=== PATIENT | male | born 1955 | race Caucasian/White ===

== ENCOUNTER 2020-08-22 13:06 | Emergency (ER) | payer BC ==
--- OUTSIDE RECORDS SUMMARY | 2020-08-22 13:10 | XMS REPORT | Continuity of Care Document ---
:1955 Author Organization [facility] t Address [address] [place] [address] Care Team Providers Name Role Phone Asked, Pcp Primary Care Physician Unavailable [facility] Attending Clinician Unavailable [facility] Admitting Clinician Unavailable Problems Condition Condition Condition Status Onset Resolution Last Treating Co mments Source Name Details Category Date Date Treatment Clinician Date Aortic Aortic Disease Active [facility] Acute Acute Disease Active [facility] blood loss blood loss 4-10 Lena kes - as cause as cause 00:00: Medica l of 00 Center postoperat postoperat joann anemia joann anemia Acute Acute Disease Active [facility] pulmonary pulmonary 4-10 [facility] - insufficie insufficie 00:00: Nc dical ncy ncy 00 Center following following thoracic thoracic surgery surgery Allergies, Adverse Reactions, Alerts This patient has no known allergies or adverse reactions. Family History Family Member Diagnosis Comments Start Date Stop Date Source Natural father Heart disease Karthik Norris Natural mother Hypertension Karthik Norris Social History Social Habit Start Date Stop Date Quantity Comments Source Alcohol intake 2016-08-28 2016-08-28 [facility] (finding) Alcohol Comment 2016-08-16 2016-08-[address] [facility] [address] Lena kes - 00:00:00 00:00:00 Medical Hobbs Sex Ass[birth year] [facility] ethodist 00:00:00 00:00:00 Smoking Status Start Date Stop Date Source Never smoker Karthik giraldo Medications Ordered Filled Start Stop Current Ordering Indication Dosage Frequency Signature Comments Components Source Medication Medication Date Date Medication? Clinician (SIG) Name Name nebivolol Yes Take by [place] (BYSTOLIC) 7-24 mouth. Methodi 5 MG tablet 14:11: st 54 aspirin Yes 81mg Take 81 mg [place] (ECOTRIN) 7-24 by mouth. Metho di 81 MG 14:11: st enteric 54 coated tablet finasteride Yes 1mg QD Take [address] (PROPECIA) 4-13 by mouth [facility] - 1 mg tablet 13:28: daily. Medi deisy 59 Center atorvastati Yes 10mg QD Take [address] [facility] n (LIPITOR) 4-13 by mouth Luke s - 10 MG 13:28: daily. Medical tablet 59 Center PNV w/o Yes QD Take by [facility] calcium-iro 4-13 mouth [facility] - n fum-FA 13:28: daily. Medical (M-VIT) 59 Center 27-1 mg Tab acetaminoph Yes 500mg Take [address] en 4-13 mg by [facility] - (TYLENOL) 13:28: mouth Medical 500 MG 59 every 6 Center tablet (six) hours as needed for Pain. aspirin 81 Yes 81mg QD Take [address] MG EC 4-13 by mouth [facility] - tablet 13:28: daily. Medical 59 Center metoprolol Yes TK 1/2 T Sharon ston tartrate 4-13 PO BID Methodi (LOPRESSOR) 00:00: st 25 mg 00 tablet atorvastati Yes TK 1 T PO H [place] n (LIPITOR) 3-20 QHS Methodi 10 MG 00:00: st tablet 00 PROPECIA 1 Yes 1mg QD Take 1 mg [place] mg tablet 3-09 by mouth Method i 00:00: once st 00 daily. Procedures This patient has no known procedures. Plan of Care Planned Activity Planned Date Details Comments Source Future Scheduled 2019-12-20 INFLUENZA VACCINE Lucho dodson [facility] Test 00:00:00 [code = INFLUENZA VACCINE] Future Scheduled 2006-06-01 COLONOSCOPY SCREENING [place] [facility] Test 00:00:00 [code = COLONOSCOPY SCREENING] Future Scheduled 2006-06-01 SHINGLES VACCINES Lucho dodson [facility] Test 00:00:00 (#1) [code = SHINGLES VACCINES (#1)] Future Scheduled 1972-06-01 COVID-19 VACCINE (1) Sharon dang [facility] Test 00:00:00 [code = COVID-19 VACCINE (1)] Results Test Description Test Time Test Comments Results Result [facility] e Comments TISSUE EXAM 2016-08-30 Surgical Pathology 18:53:00 Report Case: [id number] --Authorizing Provider: Jason Stark MD Ordering Provider: Jason Stark MD Ordering Location: [facility] Collected: 08/28/2016 1032 PERIOPERATIVE SERVICES Pathologist: Leslie Rose, Received: 08/28/2016 1150 Specimen: Aortic Valve, aortic valve AORTIC VALVE, REPAIR: - 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 Sectioning reveals focal calcification. [employer] sections are submitted in cassette A1 for entirely submitted. DB/plPERFORMED POCT-GLUCOSE METER 2016-08-30 06:54:00 Test Item Value Reference Range Interpretation Comme [facility] POC-GLUCOSE METER (Connectivity) (test 113 mg/dL 70-110 H TESTED AT [facility] [address] code = 1538) [facility] 7703 0 CBC W/PLT COUNT & AUTO [id number] 06:29:00 Test Item Value Reference Range Interpretation Comments WHITE BLOOD CELL COUNT (BEAKER) 13.4 K/ L 4.0-10.0 H (test code = 775) RED BLOOD CELL COUNT (BEAKER) 2.92 M/ L 4.20-5.80 L (test code = 761) HEMOGLOBIN (BEAKER) (test code = 9.5 GM/DL 13.0-16.8 L 410) HEMATOCRIT (BEAKER) (test code = 26.9 % 40.0-50.0 L 411) MEAN CORPUSCULAR VOLUME (BEAKER) 92.2 fL 82.0-98.0 (test code = 753) MEAN CORPUSCULAR HEMOGLOBIN 32.4 pg 27.0-33.0 (BEAKER) (test code = 751) MEAN CORPUSCULAR HEMOGLOBIN CONC 35.1 GM/DL 32.0-36.0 (BEAKER) (test code = 752) RED CELL DISTRIBUTION WIDTH 13.3 % 10.3-14.2 (BEAKER) (test code = 412) PLATELET COUNT (BEAKER) (test code 97 K/CU MM 150-430 L = 756) MEAN PLATELET VOLUME (BEAKER) 7.2 fL 6.5-10.5 (test code = 754) NUCLEATED RED BLOOD CELLS (BEAKER) 0 /100 WBC 0-0 (test code = 413) NEUTROPHILS RELATIVE PERCENT 83 % (BEAKER) (test code = 429) LYMPHOCYTES RELATIVE PERCENT 10 % (BEAKER) (test code = 430) MONOCYTES RELATIVE PERCENT 6 % (BEAKER) (test code = 431) EOSINOPHILS RELATIVE PERCENT 1 % (BEAKER) (test code = 432) BASOPHILS RELATIVE PERCENT 0 % (BEAKER) (test code = 437) NEUTROPHILS ABSOLUTE COUNT 11.10 K/ L 1.80-8.00 H (BEAKER) (test code = 670) LYMPHOCYTES ABSOLUTE COUNT 1.35 K/ L 1.48-4.50 L (BEAKER) (test code = 414) MONOCYTES ABSOLUTE COUNT (BEAKER) 0.79 K/ L 0.00-1.30 (test code = 415) EOSINOPHILS ABSOLUTE COUNT 0.10 K/ L 0.00-0.50 (BEAKER) (test code = 416) BASOPHILS ABSOLUTE COUNT (BEAKER) 0.03 K/ L 0.00-0.20 (test code = 417) [id number] 05:33:00 Test Item Value Reference Range Interpretation Comments MAGNESIUM (BEAKER) (test code = 2.2 mg/dL 1.6-2.6 627) BASIC METABOLIC [id number] 05:33:00 Test Item Value Reference Range Interpretation Comments SODIUM (BEAKER) 138 meq/L 136-145 (test code = 381) POTASSIUM (BEAKER) 4.1 meq/L 3.5-5.1 (test code = 379) CHLORIDE (BEAKER) 110 meq/L 98-107 H (test code = 382) CO2 (BEAKER) (test 20 meq/L 22-29 L code = 355) BLOOD UREA NITROGEN 12 mg/dL 7-21 (BEAKER) (test code = 354) CREATININE (BEAKER) 0.76 mg/dL 0.57-1.25 (test code = 358) GLUCOSE RANDOM 112 mg/dL 70-105 H (BEAKER) (test code = 652) CALCIUM (BEAKER) 8.0 mg/dL 8.4-10.2 L (test code = 697) EGFR (BEAKER) (test 105 mL/min/1.73 ESTIM ATED GFR IS code = 1092) sq m NOT ACCURATE CREATININE CLEARANCE IN PREDICTING GLOMERULAR FILTRATION RATE . ESTIMATED GFR I S NOT APPLICABLE FOR DIALYSIS PATIEN TS. POCT-GLUCOSE [id number] 05:39:00 Test Item Value Reference Range Interpretation Comments POC-GLUCOSE METER 122 mg/dL 70-110 H TESTED AT [facility] 67[address] (BEAKER) (test code = [place] 1538) [address] OXYGEN SATURATION, [id number] 04:36:00 Test Item Value Reference Range Interpretation Comments O2 SATURATION (MEASURED) (BEAKER) 57.9 % (test code = 1455) CALCIUM, [id number] 04:30:00 Test Item Value Reference Range Interpretation Comments CALCIUM IONIZED (BEAKER) (test 1.06 mmol/L 1.12-1.27 L code = 698) PH, BLOOD (BEAKER) (test code = 7.44 6900) Check serum Ionized Calcium level after 4 hours after IV Calcium replacement. BASIC METABOLIC [id number] 03:53:00 Test Item Value Reference Range Interpretation Comments SODIUM (BEAKER) 139 meq/L 136-145 (test code = 381) POTASSIUM (BEAKER) 4.1 meq/L 3.5-5.1 (test code = 379) CHLORIDE (BEAKER) 113 meq/L 98-107 H (test code = 382) CO2 (BEAKER) (test 21 meq/L 22-29 L code = 355) BLOOD UREA NITROGEN 14 mg/dL 7-21 (BEAKER) (test code = 354) CREATININE (BEAKER) 0.77 mg/dL 0.57-1.25 (test code = 358) GLUCOSE RANDOM 136 mg/dL 70-105 H (BEAKER) (test code = 652) CALCIUM (BEAKER) 7.7 mg/dL 8.4-10.2 L (test code = 697) EGFR (BEAKER) (test 103 mL/min/1.73 ESTIM ATED GFR IS code = 1092) sq m NOT ACCURATE CREATININE CLEARANCE IN PREDICTING GLOMERULAR FILTRATION RATE . ESTIMATED GFR I S NOT APPLICABLE FOR DIALYSIS PATIEN TS. [id number] 03:52:00 Test Item Value Reference Range Interpretation Comments PHOSPHORUS (BEAKER) (test code = 2.7 mg/dL 2.3-4.7 604) [id number] 03:52:00 Test Item Value Reference Range Interpretation Comments MAGNESIUM (BEAKER) (test code = 2.2 mg/dL 1.6-2.6 627) CBC W/PLT COUNT & AUTO [id number] 03:39:00 Test Item Value Reference Range Interpretation Comments WHITE BLOOD CELL COUNT (BEAKER) 13.9 K/ L 4.0-10.0 H (test code = 775) RED BLOOD CELL COUNT (BEAKER) 3.30 M/ L 4.20-5.80 L (test code = 761) HEMOGLOBIN (BEAKER) (test code = 10.7 GM/DL 13.0-16.8 L 410) HEMATOCRIT (BEAKER) (test code = 30.0 % 40.0-50.0 L 411) MEAN CORPUSCULAR VOLUME (BEAKER) 90.8 fL 82.0-98.0 (test code = 753) MEAN CORPUSCULAR HEMOGLOBIN 32.4 pg 27.0-33.0 (BEAKER) (test code = 751) MEAN CORPUSCULAR HEMOGLOBIN CONC 35.7 GM/DL 32.0-36.0 (BEAKER) (test code = 752) RED CELL DISTRIBUTION WIDTH 13.1 % 10.3-14.2 (BEAKER) (test code = 412) PLATELET COUNT (BEAKER) (test 105 K/CU MM 150-430 L code = 756) MEAN PLATELET VOLUME (BEAKER) 6.9 fL 6.5-10.5 (test code = 754) NUCLEATED RED BLOOD CELLS 0 /100 WBC 0-0 (BEAKER) (test code = 413) NEUTROPHILS RELATIVE PERCENT 87 % (BEAKER) (test code = 429) LYMPHOCYTES RELATIVE PERCENT 7 % (BEAKER) (test code = 430) MONOCYTES RELATIVE PERCENT 6 % (BEAKER) (test code = 431) EOSINOPHILS RELATIVE PERCENT 0 % (BEAKER) (test code = 432) BASOPHILS RELATIVE PERCENT 0 % (BEAKER) (test code = 437) NEUTROPHILS ABSOLUTE COUNT 12.00 K/ L 1.80-8.00 H (BEAKER) (test code = 670) LYMPHOCYTES ABSOLUTE COUNT 0.97 K/ L 1.48-4.50 L (BEAKER) (test code = 414) MONOCYTES ABSOLUTE COUNT (BEAKER) 0.84 K/ L 0.00-1.30 (test code = 415) EOSINOPHILS ABSOLUTE COUNT 0.03 K/ L 0.00-0.50 (BEAKER) (test code = 416) BASOPHILS ABSOLUTE COUNT (BEAKER) 0.00 K/ L 0.00-0.20 (test code = 417) 0.00POCT-GLUCOSE [id number] 02:18:00 Test Item Value Reference Range Interpretation Comments POC-GLUCOSE METER 131 mg/dL 70-110 H TESTED AT [facility] 67 (BEAKER) (test code = [place] [facility] 1538) [address] POCT-GLUCOSE [id number] 02:18:00 Test Item Value Reference Range Interpretation Comments POC-GLUCOSE METER 138 mg/dL 70-110 H TESTED AT [facility] 67[address] (BEAKER) (test code = [facility] [place] [facility] 1538) [address] [id number] 18:45:00 Test Item Value Reference Range Interpretation Comments MAGNESIUM (BEAKER) (test code = 2.4 mg/dL 1.6-2.6 627) Check Serum Magnesium level 2 hours after IV magnesium replacement.CALCIUM, [id number] 18:26:00 Test Item Value Reference Range Interpretation Comments CALCIUM IONIZED (BEAKER) (test 1.07 mmol/L 1.12-1.27 L code = 698) PH, BLOOD (BEAKER) (test code = 7.41 1810) Check serum Ionized Calcium level after 4 hours after IV Calcium replacement. POCT-GLUCOSE [id number] 18:09:00 Test Item Value Reference Range Interpretation Comments POC-GLUCOSE METER 132 mg/dL 70-110 H TESTED AT [facility] 67 (BEAKER) (test code = [facility] 1538) [address] BLOOD GAS, [id number] 15:39:00 Test Item Value Reference Range Interpretation Comments PH ARTERIAL (BEAKER) (test code = 7.49 7.35-7.45 H 383) PCO2 ARTERIAL (BEAKER) (test code 25 mmHg 35-45 L = 384) PO2 ARTERIAL (BEAKER) (test code 141 mmHg 80-90 H = 385) O2 SATURATION ARTERIAL (BEAKER) 99.0 % 96.0-97.0 H (test code = 386) HCO3 ARTERIAL (BEAKER) (test code 19 mmol/L 21-29 L = 388) BASE EXCESS ARTERIAL (BEAKER) -3.6 mmol/L -2.0-3.0 L (test code = 387) PATIENT TEMPERATURE (BEAKER) 36.7 C (test code = 1818) FIO2 (BEAKER) (test code = 1819) 40.0 % POCT-GLUCOSE [id number] 14:25:00 Test Item Value Reference Range Interpretation Comments POC-GLUCOSE METER 118 mg/dL 70-110 H TESTED AT [place] [address] (BEAKER) (test code = [facility] 1538) [address] BASIC METABOLIC [id number] 13:19:00 Test Item Value Reference Range Interpretation Comments SODIUM (BEAKER) 143 meq/L 136-145 (test code = 381) POTASSIUM (BEAKER) 4.6 meq/L 3.5-5.1 (test code = 379) CHLORIDE (BEAKER) 118 meq/L 98-107 H (test code = 382) CO2 (BEAKER) (test 19 meq/L 22-29 L code = 355) BLOOD UREA NITROGEN 12 mg/dL 7-21 (BEAKER) (test code = 354) CREATININE (BEAKER) 0.77 mg/dL 0.57-1.25 (test code = 358) GLUCOSE RANDOM 126 mg/dL 70-105 H (BEAKER) (test code = 652) CALCIUM (BEAKER) 6.1 mg/dL 8.4-10.2 L (test code = 697) EGFR (BEAKER) (test 103 mL/min/1.73 ESTIM ATED GFR IS code = 1092) sq m NOT ACCURATE CREATININE CLEARANCE IN PREDICTING GLOMERULAR FILTRATION RATE . ESTIMATED GFR I S NOT APPLICABLE FOR DIALYSIS PATIEN TS. [id number] 13:17:00 Test Item Value Reference Range Interpretation Comments PHOSPHORUS (BEAKER) (test code = 2.4 mg/dL 2.3-4.7 604) [id number] 13:17:00 Test Item Value Reference Range Interpretation Comments MAGNESIUM (BEAKER) (test code = 1.9 mg/dL 1.6-2.6 627) LACTIC ACID, ARTERIAL, WHOLE [id number] 13:14:00 Test Item Value Reference Range Interpretation Comments LACTATE BLOOD ARTERIAL (2) 0.9 mmol/L 0.5-2.2 (BEAKER) (test code = 2874) Effective 09/22/2015: Units/Reference Range ChangeNew: 0.5-2.2 mmol/L Previous: 5-20 mg/[id number] 13:05:00 Test Item Value Reference Range Interpretation Comments FIBRINOGEN LEVEL (BEAKER) (test 189 mg/dl 225-434 L code = 658) [id number] 13:05:00 Test Item Value Reference Range Interpretation Comments PARTIAL THROMBOPLASTIN TIME 34.1 seconds 22.5-36.0 (BEAKER) (test code = 760) PROTHROMBIN [id number] 13:04:00 Test Item Value Reference Range Interpretation Comments PROTIME (BEAKER) (test code = 18.0 seconds 11.7-14.7 H 759) INR (BEAKER) (test code = 370) 1.5 <=5.9 RECOMMENDED COUMADIN/WARFARIN INR THERAPY RANGESSTANDARD DOSE: 2.0 - 3.0 Includes: PROPHYLAXIS forvenous thrombosis, systemic embolization; TREATMENT for venous thrombosis and/or pulmonary embolus.HIGH RISK: Target INR is 2.5-3.5 for patients with mechanical heart valves.CBC W/PLT COUNT & AUTO DIFFERENTIAL 2016-08-28 13:04:00 Test Item Value Reference Range Interpretation Comments WHITE BLOOD CELL COUNT (BEAKER) 12.9 K/ L 4.0-10.0 H (test code = 775) RED BLOOD CELL COUNT (BEAKER) 3.60 M/ L 4.20-5.80 L (test code = 761) HEMOGLOBIN (BEAKER) (test code = 11.9 GM/DL 13.0-16.8 L 410) HEMATOCRIT (BEAKER) (test code = 32.5 % 40.0-50.0 L 411) MEAN CORPUSCULAR VOLUME (BEAKER) 90.1 fL 82.0-98.0 (test code = 753) MEAN CORPUSCULAR HEMOGLOBIN 32.9 pg 27.0-33.0 (BEAKER) (test code = 751) MEAN CORPUSCULAR HEMOGLOBIN CONC 36.5 GM/DL 32.0-36.0 H (BEAKER) (test code = 752) RED CELL DISTRIBUTION WIDTH 12.3 % 10.3-14.2 (BEAKER) (test code = 412) PLATELET COUNT (BEAKER) (test code 91 K/CU MM 150-430 L = 756) MEAN PLATELET VOLUME (BEAKER) 6.8 fL 6.5-10.5 (test code = 754) NUCLEATED RED BLOOD CELLS (BEAKER) 0 /100 WBC 0-0 (test code = 413) NEUTROPHILS RELATIVE PERCENT 83 % (BEAKER) (test code = 429) LYMPHOCYTES RELATIVE PERCENT 12 % (BEAKER) (test code = 430) MONOCYTES RELATIVE PERCENT 4 % (BEAKER) (test code = 431) EOSINOPHILS RELATIVE PERCENT 1 % (BEAKER) (test code = 432) BASOPHILS RELATIVE PERCENT 0 % (BEAKER) (test code = 437) NEUTROPHILS ABSOLUTE COUNT 10.80 K/ L 1.80-8.00 H (BEAKER) (test code = 670) LYMPHOCYTES ABSOLUTE COUNT 1.60 K/ L 1.48-4.50 (BEAKER) (test code = 414) MONOCYTES ABSOLUTE COUNT (BEAKER) 0.47 K/ L 0.00-1.30 (test code = 415) EOSINOPHILS ABSOLUTE COUNT 0.08 K/ L 0.00-0.50 (BEAKER) (test code = 416) BASOPHILS ABSOLUTE COUNT (BEAKER) 0.03 K/ L 0.00-0.20 (test code = 417) CALCIUM, [id number] 13:02:00 Test Item Value Reference Range Interpretation Comments CALCIUM IONIZED (BEAKER) (test 0.96 mmol/L 1.12-1.27 L code = 698) PH, BLOOD (BEAKER) (test code = 7.35 1810) BLOOD GAS, [id number] 13:00:00 Test Item Value Reference Range Interpretation Comments PH ARTERIAL (BEAKER) (test code = 7.35 7.35-7.45 383) PCO2 ARTERIAL (BEAKER) (test code 37 mmHg 35-45 = 384) PO2 ARTERIAL (BEAKER) (test code 132 mmHg 80-90 H = 385) O2 SATURATION ARTERIAL (BEAKER) 98.6 % 96.0-97.0 H (test code = 386) HCO3 ARTERIAL (BEAKER) (test code 20 mmol/L 21-29 L = 388) BASE EXCESS ARTERIAL (BEAKER) -5.4 mmol/L -2.0-3.0 L (test code = 387) PATIENT TEMPERATURE (BEAKER) 36.4 C (test code = 1818) FIO2 (BEAKER) (test code = 1819) 60.0 % GLUCOSE-STAT [id number] 13:00:00 Test Item Value Reference Range Interpretation Comments GLUCOSE RANDOM (BEAKER) (test code 126 mg/dL 70-110 H = 652) OXYGEN SATURATION, [id number] 12:58:00 Test Item Value Reference Range Interpretation Comments O2 SATURATION (MEASURED) (BEAKER) 69.9 % (test code = 1455) [id number] 12:29:00 Test Item Value Reference Range Interpretation Comments ACTIVATED CLOTTING TIME 121 sec TEST ED AT [place] [address] ([facility]) (test code = [place] [facility]) [id number] 12:29:00 Test Item Value Reference Range Interpretation Comments ACTIVATED CLOTTING TIME 487 sec TEST ED AT [place] [address] ([facility]) (test code = [place] [facility]) [address] [id number] 12:29:00 Test Item Value Reference Range Interpretation Comments ACTIVATED CLOTTING TIME 471 sec TEST ED AT [place] [address] ([facility]) (test code = [place] [facility]) [address] [id number] 12:29:00 Test Item Value Reference Range Interpretation Comments ACTIVATED CLOTTING TIME 657 sec TEST ED AT [place] [address] ([facility]) (test code = [place] [address]) [address] [id number] 12:29:00 Test Item Value Reference Range Interpretation Comments ACTIVATED CLOTTING TIME 904 sec TEST ED AT [place] [address] ([facility]) (test code = [place] [address]) [address] [id number] 12:29:00 Test Item Value Reference Range Interpretation Comments ACTIVATED CLOTTING TIME 569 sec TEST ED AT [place] [address] ([facility]) (test code = [place] [address]) [address] [id number] 12:29:00 Test Item Value Reference Range Interpretation Comments ACTIVATED CLOTTING TIME 363 sec TEST ED AT [place] [address] ([facility]) (test code = [place] [address]) [address] BLOOD GAS, [id number] 11:44:00 Test Item Value Reference Range Interpretation Comments PH ARTERIAL (BEAKER) (test code = 7.34 7.35-7.45 L 383) PCO2 ARTERIAL (BEAKER) (test code 38 mmHg 35-45 = 384) PO2 ARTERIAL (BEAKER) (test code 182 mmHg 80-90 H = 385) O2 SATURATION ARTERIAL (BEAKER) 99.2 % 96.0-97.0 H (test code = 386) HCO3 ARTERIAL (BEAKER) (test code 20 mmol/L 21-29 L = 388) BASE EXCESS ARTERIAL (BEAKER) -5.3 mmol/L -2.0-3.0 L (test code = 387) PATIENT TEMPERATURE (BEAKER) 36.2 C (test code = 1818) FIO2 (BEAKER) (test code = 1819) 100.0 % GLUCOSE-STAT [id number] 11:44:00 Test Item Value Reference Range Interpretation Comments GLUCOSE RANDOM (BEAKER) (test code 128 mg/dL 70-110 H = 652) HGB/HCT (H&H) - STAT [id number] 11:44:00 Test Item Value Reference Range Interpretation Comments HEMOGLOBIN (BEAKER) (test code = 9.3 g/dL 13.0-16.8 L 410) HEMATOCRIT (BEAKER) (test code = 27.0 % 40.0-50.0 L 411) SODIUM NA-STAT [id number] 11:40:00 Test Item Value Reference Range Interpretation Comments SODIUM (BEAKER) (test code = 381) 140 meq/L 135-148 POTASSIUM-STAT [id number] 11:40:00 Test Item Value Reference Range Interpretation Comments POTASSIUM (BEAKER) (test code = 4.9 meq/L 3.6-5.5 379) BLOOD GAS, [id number] 10:56:00 Test Item Value Reference Range Interpretation Comments PH ARTERIAL (BEAKER) (test code = 7.36 7.35-7.45 383) PCO2 ARTERIAL (BEAKER) (test code 37 mmHg 35-45 = 384) PO2 ARTERIAL (BEAKER) (test code 242 mmHg 80-90 H = 385) O2 SATURATION ARTERIAL (BEAKER) 99.5 % 96.0-97.0 H (test code = 386) HCO3 ARTERIAL (BEAKER) (test code 21 mmol/L 21-29 = 388) BASE EXCESS ARTERIAL (BEAKER) -4.7 mmol/L -2.0-3.0 L (test code = 387) PATIENT TEMPERATURE (BEAKER) 35.5 C (test code = 1818) FIO2 (BEAKER) (test code = 1819) 75.0 % POTASSIUM-STAT [id number] 10:56:00 Test Item Value Reference Range Interpretation Comments POTASSIUM (BEAKER) (test code = 5.7 meq/L 3.6-5.5 H 379) GLUCOSE-STAT [id number] 10:56:00 Test Item Value Reference Range Interpretation Comments GLUCOSE RANDOM (BEAKER) (test code 114 mg/dL 70-110 H = 652) HGB/HCT (H&H) - STAT [id number] 10:56:00 Test Item Value Reference Range Interpretation Comments HEMOGLOBIN (BEAKER) (test code = 10.3 g/dL 13.0-16.8 L 410) HEMATOCRIT (BEAKER) (test code = 30.0 % 40.0-50.0 L 411) SODIUM NA-STAT [id number] 10:54:00 Test Item Value Reference Range Interpretation Comments SODIUM (BEAKER) (test code = 381) 141 meq/L 135-148 SODIUM NA-STAT [id number] 10:19:00 Test Item Value Reference Range Interpretation Comments SODIUM (BEAKER) (test code = 381) 137 meq/L 135-148 BLOOD GAS, [id number] 10:19:00 Test Item Value Reference Range Interpretation Comments PH ARTERIAL (BEAKER) (test code = 7.36 7.35-7.45 383) PCO2 ARTERIAL (BEAKER) (test code 37 mmHg 35-45 = 384) PO2 ARTERIAL (BEAKER) (test code 305 mmHg 80-90 H = 385) O2 SATURATION ARTERIAL (BEAKER) 99.7 % 96.0-97.0 H (test code = 386) HCO3 ARTERIAL (BEAKER) (test code 22 mmol/L 21-29 = 388) BASE EXCESS ARTERIAL (BEAKER) -4.6 mmol/L -2.0-3.0 L (test code = 387) PATIENT TEMPERATURE (BEAKER) 33.0 C (test code = 1818) FIO2 (BEAKER) (test code = 1819) 70.0 % POTASSIUM-STAT [id number] 10:19:00 Test Item Value Reference Range Interpretation Comments POTASSIUM (BEAKER) (test code = 5.9 meq/L 3.6-5.5 H 379) GLUCOSE-STAT [id number] 10:19:00 Test Item Value Reference Range Interpretation Comments GLUCOSE RANDOM (BEAKER) (test code 129 mg/dL 70-110 H = 652) HGB/HCT (H&H) - STAT [id number] 10:19:00 Test Item Value Reference Range Interpretation Comments HEMOGLOBIN (BEAKER) (test code = 10.9 g/dL 13.0-16.8 L 410) HEMATOCRIT (BEAKER) (test code = 32.0 % 40.0-50.0 L 411) POTASSIUM-STAT [id number] 09:52:00 Test Item Value Reference Range Interpretation Comments POTASSIUM (BEAKER) (test code = 6.6 meq/L 3.6-5.5 HH 379) BLOOD GAS, [id number] 09:51:00 Test Item Value Reference Range Interpretation Comments PH ARTERIAL (BEAKER) (test code = 7.35 7.35-7.45 383) PCO2 ARTERIAL (BEAKER) (test code 42 mmHg 35-45 = 384) PO2 ARTERIAL (BEAKER) (test code 286 mmHg 80-90 H = 385) O2 SATURATION ARTERIAL (BEAKER) 99.6 % 96.0-97.0 H (test code = 386) HCO3 ARTERIAL (BEAKER) (test code 24 mmol/L 21-29 = 388) BASE EXCESS ARTERIAL (BEAKER) -2.8 mmol/L -2.0-3.0 L (test code = 387) PATIENT TEMPERATURE (BEAKER) 33.0 C (test code = 1818) FIO2 (BEAKER) (test code = 1819) 70.0 % SODIUM NA-STAT [id number] 09:51:00 Test Item Value Reference Range Interpretation Comments SODIUM (BEAKER) (test code = 381) 132 meq/L 135-148 L GLUCOSE-STAT [id number] 09:51:00 Test Item Value Reference Range Interpretation Comments GLUCOSE RANDOM (BEAKER) (test code 123 mg/dL 70-110 H = 652) HGB/HCT (H&H) - STAT [id number] 09:51:00 Test Item Value Reference Range Interpretation Comments HEMOGLOBIN (BEAKER) (test code = 10.9 g/dL 13.0-16.8 L 410) HEMATOCRIT (BEAKER) (test code = 32.0 % 40.0-50.0 L 411) BLOOD GAS, [id number] 09:30:00 Test Item Value Reference Range Interpretation Comments PH ARTERIAL (BEAKER) (test code = 7.41 7.35-7.45 383) PCO2 ARTERIAL (BEAKER) (test code 33 mmHg 35-45 L = 384) PO2 ARTERIAL (BEAKER) (test code 334 mmHg 80-90 H = 385) O2 SATURATION ARTERIAL (BEAKER) 99.8 % 96.0-97.0 H (test code = 386) HCO3 ARTERIAL (BEAKER) (test code 22 mmol/L 21-29 = 388) BASE EXCESS ARTERIAL (BEAKER) -3.4 mmol/L -2.0-3.0 L (test code = 387) PATIENT TEMPERATURE (BEAKER) 34.1 C (test code = 1818) FIO2 (BEAKER) (test code = 1819) 80.0 % SODIUM NA-STAT [id number] 09:30:00 Test Item Value Reference Range Interpretation Comments SODIUM (BEAKER) (test code = 381) 130 meq/L 135-148 L HGB/HCT (H&H) - STAT [id number] 09:30:00 Test Item Value Reference Range Interpretation Comments HEMOGLOBIN (BEAKER) (test code = 9.5 g/dL 13.0-16.8 L 410) HEMATOCRIT (BEAKER) (test code = 28.0 % 40.0-50.0 L 411) GLUCOSE-STAT [id number] 09:28:00 Test Item Value Reference Range Interpretation Comments GLUCOSE RANDOM (BEAKER) (test code 107 mg/dL 70-110 = 652) POTASSIUM-STAT [id number] 09:28:00 Test Item Value Reference Range Interpretation Comments POTASSIUM (BEAKER) (test code = 4.8 meq/L 3.6-5.5 379) BLOOD GAS, [id number] 08:32:00 Test Item Value Reference Range Interpretation Comments PH ARTERIAL (BEAKER) (test code = 7.44 7.35-7.45 383) PCO2 ARTERIAL (BEAKER) (test code 33 mmHg 35-45 L = 384) PO2 ARTERIAL (BEAKER) (test code 376 mmHg 80-90 H = 385) O2 SATURATION ARTERIAL (BEAKER) 99.8 % 96.0-97.0 H (test code = 386) HCO3 ARTERIAL (BEAKER) (test code 23 mmol/L 21-29 = 388) BASE EXCESS ARTERIAL (BEAKER) -1.4 mmol/L -2.0-3.0 (test code = 387) PATIENT TEMPERATURE (BEAKER) 35.5 C (test code = 1818) FIO2 (BEAKER) (test code = 1819) 100.0 % HGB/HCT (H&H) - STAT [id number] 08:32:00 Test Item Value Reference Range Interpretation Comments HEMOGLOBIN (BEAKER) (test code = 12.4 g/dL 13.0-16.8 L 410) HEMATOCRIT (BEAKER) (test code = 36.0 % 40.0-50.0 L 411) POTASSIUM-STAT [id number] 08:28:00 Test Item Value Reference Range Interpretation Comments POTASSIUM (BEAKER) (test code = 4.0 meq/L 3.6-5.5 379) GLUCOSE-STAT [id number] 08:28:00 Test Item Value Reference Range Interpretation Comments GLUCOSE RANDOM (BEAKER) (test code = 98 mg/dL 70-110 652) SODIUM NA-STAT [id number] 08:28:00 Test Item Value Reference Range Interpretation Comments SODIUM (BEAKER) (test code = 381) 137 meq/L 135-148 BASIC METABOLIC [id number] 15:29:00 Test Item Value Reference Range Interpretation Comments SODIUM (BEAKER) 140 meq/L 136-145 (test code = 381) POTASSIUM (BEAKER) 5.1 meq/L 3.5-5.1 (test code = 379) CHLORIDE (BEAKER) 107 meq/L 98-107 (test code = 382) CO2 (BEAKER) (test 24 meq/L 22-29 code = 355) BLOOD UREA NITROGEN 20 mg/dL 7-21 (BEAKER) (test code = 354) CREATININE (BEAKER) 0.98 mg/dL 0.57-1.25 (test code = 358) GLUCOSE RANDOM 87 mg/dL 70-105 (BEAKER) (test code = 652) CALCIUM (BEAKER) 9.6 mg/dL 8.4-10.2 (test code = 697) EGFR (BEAKER) (test 78 mL/min/1.73 ESTIMA RAVI GFR IS code = 1092) sq m NOT ACCURATE CREATININE CLEARANCE IN PREDICTING GLOMERULAR FILTRATION RATE . ESTIMATED GFR I S NOT APPLICABLE FOR DIALYSIS PATIEN TS. URINALYSIS W/ [id number] 15:25:00 Test Item Value Reference Range Interpretation Comments COLOR (BEAKER) (test code = 470) Yellow CLARITY (BEAKER) (test code = 469) Clear SPECIFIC GRAVITY UA (BEAKER) (test 1.016 1.001-1.035 code = 468) PH UA (BEAKER) (test code = 467) 6.0 5.0-8.0 PROTEIN UA (BEAKER) (test code = Negative Negative 464) GLUCOSE UA (BEAKER) (test code = Negative Negative 365) KETONES UA (BEAKER) (test code = Negative Negative 371) BILIRUBIN UA (BEAKER) (test code = Negative Negative 462) BLOOD UA (BEAKER) (test code = 461) Small Negative A NITRITE UA (BEAKER) (test code = Negative Negative 465) LEUKOCYTE ESTERASE UA (BEAKER) Negative Negative (test code = 466) UROBILINOGEN UA (BEAKER) (test code 0.2 mg/dL 0.2-1.0 = 463) RBC UA (BEAKER) (test code = 519) 9 /HPF WBC UA (BEAKER) (test code = 520) 1 /HPF MUCUS (BEAKER) (test code = 1574) Rare SOURCE(BEAKER) (test code = 2795) [id number] 14:23:00 Test Item Value Reference Range Interpretation Comments PARTIAL THROMBOPLASTIN TIME 34.3 seconds 22.5-36.0 (BEAKER) (test code = 760) PROTHROMBIN TIME/[id number] 14:22:00 Test Item Value Reference Range Interpretation Comments PROTIME (BEAKER) (test code = 13.2 seconds 11.7-14.7 759) INR (BEAKER) (test code = 370) 1.0 <=5.9 RECOMMENDED COUMADIN/WARFARIN INR THERAPY RANGESSTANDARD DOSE: 2.0 - 3.0 Includes: PROPHYLAXIS forvenous thrombosis, systemic embolization; TREATMENT for venous thrombosis and/or pulmonary embolus.HIGH RISK: Target INR is 2.5-3.5 for patients with mechanical heart valves.CBC W/PLT COUNT & AUTO DIFFERENTIAL 2016-08-16 14:12:00 Test Item Value Reference Range Interpretation Comments WHITE BLOOD CELL COUNT (BEAKER) 10.0 K/ L 4.0-10.0 (test code = 775) RED BLOOD CELL COUNT (BEAKER) 4.43 M/ L 4.20-5.80 (test code = 761) HEMOGLOBIN (BEAKER) (test code = 13.2 GM/DL 13.0-16.8 410) HEMATOCRIT (BEAKER) (test code = 39.6 % 40.0-50.0 L 411) MEAN CORPUSCULAR VOLUME (BEAKER) 89.4 fL 82.0-98.0 (test code = 753) MEAN CORPUSCULAR HEMOGLOBIN 29.9 pg 27.0-33.0 (BEAKER) (test code = 751) MEAN CORPUSCULAR HEMOGLOBIN CONC 33.5 GM/DL 32.0-36.0 (BEAKER) (test code = 752) RED CELL DISTRIBUTION WIDTH 12.2 % 10.3-14.2 (BEAKER) (test code = 412) PLATELET COUNT (BEAKER) (test 169 K/CU MM 150-430 code = 756) MEAN PLATELET VOLUME (BEAKER) 6.7 fL 6.5-10.5 (test code = 754) NUCLEATED RED BLOOD CELLS 0 /100 WBC 0-0 (BEAKER) (test code = 413) NEUTROPHILS RELATIVE PERCENT 64 % (BEAKER) (test code = 429) LYMPHOCYTES RELATIVE PERCENT 27 % (BEAKER) (test code = 430) MONOCYTES RELATIVE PERCENT 5 % (BEAKER) (test code = 431) EOSINOPHILS RELATIVE PERCENT 2 % (BEAKER) (test code = 432) BASOPHILS RELATIVE PERCENT 1 % (BEAKER) (test code = 437) NEUTROPHILS ABSOLUTE COUNT 6.43 K/ L 1.80-8.00 (BEAKER) (test code = 670) LYMPHOCYTES ABSOLUTE COUNT 2.71 K/ L 1.48-4.50 (BEAKER) (test code = 414) MONOCYTES ABSOLUTE COUNT (BEAKER) 0.53 K/ L 0.00-1.30 (test code = 415) EOSINOPHILS ABSOLUTE COUNT 0.23 K/ L 0.00-0.50 (BEAKER) (test code = 416) BASOPHILS ABSOLUTE COUNT (BEAKER) 0.11 K/ L 0.00-0.20 (test code = 417) 0.00
[2020-08-22] MEDS ORDERED: CYCLOBENZAPRINE 10 MG TAB ONE (15:52)
[2020-08-22] MEDS ORDERED: HYDROCODONE/APAP 10/325 TAB ONE (15:53)
[2020-08-22] MEDS ORDERED: LIDOCAINE 4% PATCH ONE (15:53)
--- NOTE | 2020-08-22 16:06 | EDPHYS ---
Physician Documentation [facility] Name: Santosh Ferrera Age: 65 yrs Sex: Male : 1955 Arrival Date: 08/22/2020 Time: 13:07 Bed 16 Private MD: ED Physician Igor Mack HPI: 08/22 14:55 This 65 yrs old Male presents to ER via Ambulatory with complaints of Back pm1 Pain, Neck Swelling. 14:55 The patient presents with pain that is acute. The symptoms are located in the low back. pm1 Onset: The symptoms/episode began/occurred this morning. The pain does not radiate. Associated signs and symptoms: The patient has no apparent associated signs or symptoms, Pertinent negatives: abdominal pain, chest pain, dysuria, fever, nausea, numbness, tingling, vomiting, weakness. The problem was sustained playing sports, Patient was playing baseball - catch with his grandson yesterday and then woke up in the morning with a sore low back. Patient reports swelling to left side of neck that is not causing any pain or issues. Patient reports that it is likely due to his guitar playing and muscle build up from holding the guitar up on his left side. The patient has not recently seen a physician, has an appointment scheduled, to see MD for another issue, left inguinal hernia, in a few days. . Historical: - Allergies: 13:37 No Known Allergies; jd3 - PMHx: 13:37 Hypertension; High Cholesterol; jd3 - PSHx: 13:37 heart valve; Knee surgery; jd3 - Immunization history:: Adult Immunizations up to date. - Social history:: Smoking status: Patient denies any tobacco usage or history of. ROS: 14:55 Constitutional: Negative for fever, chills, and weight loss. pm1 14:55 Cardiovascular: Negative for chest pain, palpitations, and edema, Respiratory: Negative for shortness of breath, cough, wheezing, and pleuritic chest pain, Abdomen/GI: Negative for abdominal pain, nausea, vomiting, diarrhea, and constipation. 14:55 MS/Extremity: Negative for injury and deformity, Skin: Negative for injury, rash, and discoloration, Neuro: Negative for headache, weakness, numbness, tingling, and seizure. 14:55 Neck: Positive for mass, of the left supraclavicular area, Negative for pain with movement, pain at rest, tenderness, bony tenderness. 14:55 Back: Positive for of the low back area, pain. Exam: 14:55 Constitutional: This is a well developed, well nourished patient who is awake, alert, pm1 and in no acute distress. Head/Face: Normocephalic, atraumatic. 14:55 Neck: External neck: is normal, no acute changes, C-spine: appears grossly normal, vertebral tenderness, is not appreciated, ROM/movement: is normal, is supple. 14:55 Skin: Warm, dry with normal turgor. Normal color with no rashes, no lesions, and no pm1 evidence of cellulitis. MS/ Extremity: Pulses equal, no cyanosis. Neurovascular intact. Full, normal range of motion. 14:55 Chest/axilla: soft, nontender mass to left sternoclavicular area, appears to the be muscle. 14:55 Cardiovascular: Rate: normal, Rhythm: regular, Pulses: no pulse deficits are appreciated. 14:55 Respiratory: Exam negative for acute changes, respiratory distress, shortness of breath. 14:55 Back: normal spinal alignment noted, vertebral tenderness, is not appreciated, muscle spasm, is appreciated in the left low back and right low back. 14:55 Neuro: Exam negative for acute changes, Orientation: is normal, Mentation: is normal, Motor: moves all fours, strength is normal, strength is 5/5 in all extremities, Sensation: is normal, no obvious gross deficits. Vital Signs: 13:37 BP 141 / 72; Pulse 75; Resp 17 S; Temp 97.8(TE); Pulse Ox 100% on R/A; Weight 72.12 kg jd3 (R); Height 5 ft. 6 in. (167.64 cm) (R); Pain 10/10; 14:47 BP 152 / 83; Pulse 71; Resp 16; Pulse Ox 100% on R/A; ca1 16:00 BP 128 / 77; Pulse 76; Resp 16 S; Pulse Ox 100% on R/A; ca1 13:37 Body Mass Index 25.66 (72.12 kg, 167.64 cm) jd3 MDM: 14:55 Patient medically screened. pm1 16:04 Data reviewed: vital signs. Data interpreted: Pulse oximetry: on room air is 100 %. pm1 Interpretation: normal. Counseling: I had a detailed discussion with the patient and/or guardian regarding: the historical points, exam findings, and any diagnostic results supporting the discharge/admit diagnosis, the need for outpatient follow up, to return to the emergency department if symptoms worsen or persist or if there are any questions or concerns that arise at home. Administered Medications: 15:38 Drug: Flexeril (cyclobenzaprine) 10 mg Route: PO; ca1 16:17 Follow up: Response: No adverse reaction; Pain is decreased ca1 15:40 Drug: [place] (HYDROcodone-acetaminophen) 10 mg-325 mg 1 tabs {Note: rass 0.} Route: PO; ca1 16:17 Follow up: Response: No adverse reaction; Pain is decreased; RASS: Alert and Calm (0) ca1 15:42 Drug: Lidoderm 5 % (700 mg/patch) 1 patches {Note: L mid and lower back.} Route: ca1 Topical; Site: affected area; Disposition: 18:50 Co-signature as Attending Physician, Igor Mack MD. ma2 Disposition: 08/22/20 16:05 Discharged to Home. Impression: Muscle spasm of back, Low back pain. - Condition is Stable. - Discharge Instructions: Back Pain, Adult, Muscle Cramps and Spasms, Back Injury Prevention, [id number]. - Prescriptions for Lidoderm 5 % Topical adhesive patch,medicated - apply 1 patch by TRANSDERMAL route once daily As needed 12 hours on and 12 hours off in a 24 hour period; 30 Transdermal Patch. Tylenol- Codeine #3 300-30 mg Oral Tablet - take 2 tablets by ORAL route every 4-6 hours As needed; 20 tablet. Cyclobenzaprine 10 mg Oral Tablet - take 1 tablet by ORAL route every 8 hours As needed; 30 tablet. - Medication Reconciliation Form, Thank You Letter, Antibiotic Education, Prescription Opioid Use form. - Follow up: Emergency Department; When: As needed; Reason: Worsening of condition. Follow up: Private Physician; When: 2 - 3 days; Reason: Recheck today's complaints, Continuance of care, Re-evaluation by your physician. - Problem is new. - Symptoms have improved. Signatures: Yonatan Calle, [employer] SALES SERVICE PROFESSIONAL pm1 Torsten Herring RN RN jd3 Igor Mack MD MD ma2 Candie Downs RN RN ca1 Corrections: (The following items were deleted from the chart) 16:18 16:05 08/22/2020 16:05 Discharged to Home. Impression: Muscle spasm of back; Low back ca1 pain. Condition is Stable. Forms are Medication Reconciliation Form, Thank You Letter, Antibiotic Education, Prescription Opioid Use. Follow up: Emergency Department; When: As needed; Reason: Worsening of condition. Follow up: Private Physician; When: 2 - 3 days; Reason: Recheck today's complaints, Continuance of care, Re-evaluation by your physician. Problem is new. Symptoms have improved. pm1
--- NOTE | 2020-08-22 16:06 | ER ---
Nurse's Notes [facility] Name: Santosh Ferrera Age: 65 yrs Sex: Male : 1955 Arrival Date: 08/22/2020 Time: 13:07 Bed 16 Private MD: Diagnosis: Muscle spasm of back;Low back pain Presentation: 08/22 13:33 Chief complaint: Patient states: "i was playing catch with my grandson and this morning jd3 my back and my neck are painful this morning. I don't know if I pulled something or what, but it is just super painful.". Coronavirus screen: At this time, the client does not indicate any symptoms associated with coronavirus-19. Ebola Screen: Patient negative for fever greater than or equal to 101.5 degrees Fahrenheit, and additional compatible Ebola Virus Disease symptoms. Initial Sepsis Screen: Does the patient meet any 2 criteria? No. Patient's initial sepsis screen is negative. Does the patient have a suspected source of infection? No. Patient's initial sepsis screen is negative. Risk Assessment: Do you want to hurt yourself or someone else? Patient reports no desire to harm self or others. Note Tylenol taken last at 1100. Onset of symptoms was August 22, 2020. 13:33 Method Of Arrival: Ambulatory jd3 13:33 Acuity: ZOFIA 3 jd3 Historical: - Allergies: 13:37 No Known Allergies; jd3 - PMHx: 13:37 Hypertension; High Cholesterol; jd3 - PSHx: 13:37 heart valve; Knee surgery; jd3 - Immunization history:: Adult Immunizations up to date. - Social history:: Smoking status: Patient denies any tobacco usage or history of. Screenin:44 Abuse screen: Denies threats or abuse. Denies injuries from another. Nutritional ca1 screening: No deficits noted. Tuberculosis screening: No symptoms or risk factors identified. Fall Risk None identified. Assessment: 14:44 General: Appears in no apparent distress. uncomfortable, Behavior is calm, cooperative, ca1 appropriate for age. Pain: Complains of pain in low back area and left mid back Pain currently is 8 out of 10 on a pain scale. Pain began this AM. Neuro: Level of Consciousness is awake, alert, obeys commands, Oriented to person, place, time, situation, Appropriate for age. Derm: Skin is intact, is healthy with good turgor, Skin is pink, warm \\T\\ dry. Musculoskeletal: Circulation, motion, and sensation intact. Capillary refill < 3 seconds. 16:00 Reassessment: Patient appears in no apparent distress at this time. Patient and/or ca1 family updated on plan of care and expected duration. Pain level reassessed. Patient is alert, oriented x 3, equal unlabored respirations, skin warm/dry/pink. Patient states feeling better. Patient states symptoms have improved. Vital Signs: 13:37 BP 141 / 72; Pulse 75; Resp 17 S; Temp 97.8(TE); Pulse Ox 100% on R/A; Weight 72.12 kg jd3 (R); Height 5 ft. 6 in. (167.64 cm) (R); Pain 10/10; 14:47 BP 152 / 83; Pulse 71; Resp 16; Pulse Ox 100% on R/A; ca1 16:00 BP 128 / 77; Pulse 76; Resp 16 S; Pulse Ox 100% on R/A; ca1 13:37 Body Mass Index 25.66 (72.12 kg, 167.64 cm) jd3 ED Course: 13:07 Patient arrived in ED. as 13:35 Triage completed. jd3 13:37 Arm band placed on. jd3 14:39 Yonatan Calle NP is PHCP. pm1 14:39 Igor Mack MD is Attending Physician. pm1 14:40 Candie Downs, CADENCE is Primary Nurse. ca1 14:44 Patient has correct armband on for positive identification. Bed in low position. Call ca1 light in reach. Side rails up X2. Pulse ox on. NIBP on. Warm blanket given. 14:47 No provider procedures requiring assistance completed. Patient did not have IV access ca1 during this emergency room visit. Administered Medications: 15:38 Drug: Flexeril (cyclobenzaprine) 10 mg Route: PO; ca1 16:17 Follow up: Response: No adverse reaction; Pain is decreased ca1 15:40 Drug: [place] (HYDROcodone-acetaminophen) 10 mg-325 mg 1 tabs {Note: rass 0.} Route: PO; ca1 16:17 Follow up: Response: No adverse reaction; Pain is decreased; RASS: Alert and Calm (0) ca1 15:42 Drug: Lidoderm 5 % (700 mg/patch) 1 patches {Note: L mid and lower back.} Route: ca1 Topical; Site: affected area; Outcome: 16:05 Discharge ordered by . pm1 16:17 Discharged to home ambulatory. ca1 16:17 Condition: stable 16:17 Discharge instructions given to patient, Instructed on discharge instructions, follow up and referral plans. no drinking with medication, no driving heavy equipment, medication usage, Demonstrated understanding of instructions, follow-up care, medications, Prescriptions given X 3. 16:18 Patient left the ED. ca1 Signatures: Gwendolyn Mckeon Patrick, CHILD LIFE THERAPIST CHILD LIFE THERAPIST pm1 Torsten Herring RN RN jd3 Candie Downs RN RN ca1 Corrections: (The following items were deleted from the chart) 14:47 14:44 Pain: Complains of pain in low back area and left mid back Pain radiates to ca1 pelvis Pain currently is 8 out of 10 on a pain scale. Pain began this AM ca1
[2020-08-22 16:22] VITALS: TEMP 97.8; O2SAT 100
[2020-08-22 16:25] VITALS: BP 128/77
== END 2020-08-22 16:18 | disposition home or self-care (01) ==
LOC: ER 13:06
DX: M62.830 Muscle spasm of back (principal); I10 Essential (primary) hypertension
CPT/HCPCS: 99283

== ENCOUNTER 2024-05-09 15:06 | Emergency (ER) | payer BC ==
--- OUTSIDE RECORDS SUMMARY | 2024-05-09 15:10 | XMS REPORT | Clinical Summary ---
Author Name Unknown Organization [facility] Address [address] [place] [address] Care Team Providers Care Protection Analyst Name Role Phone Adriel Schuler MD Primary Care Provider [phone] Eva Momin MD Unavailable [phone] Woody Billy MD Unavailable Erlin Flores MD PhD Unavailable [phone] Allergies No known active allergies Medications Bystolic 5 mg tablet Take 1 tablet (5 mg) by mouth daily. 08/20/19 21 Active atorvastatin (LIPITOR) 10 mg tablet Take 1 tablet (10 mg) by mouth daily. Active glucosam/chond/ hyalu/CF borate (MOVE FREE JOINT HEALTH ORAL)Indication s:Joint health Take 1 tablet by mouth daily. Active FeroSuL 325 mg (65 mg iron) tabletIndicatio ns:Iron deficiency anemia, not otherwise specified TAKE 1 TABLET BY MOUTH ONCE PER DAY WITH BREAKFAST. 90 tablet 3 10/11/19 22 Active folic acid (FOLVITE) 1 mg tabletIndicatio ns:Anemia in neoplastic disease TAKE ONE (1) TABLET(S) BY MOUTH DAILY. 30 tablet 3 09/05/19 23 Active aspirin 81 mg chewable tablet Chew 1 tablet (81 mg) daily. Active multivitamin tab tablet Take 1 tablet by mouth daily. Active fluticasone propionate (FLONASE) 50 mcg/spray nasal sprayIndication s:Chronic lymphocytic leukemia of B-cell type Inhale 1 spray (50 mcg) into each nostril daily as needed for rhinitis or allergies. 16 g 08/13/19 24 Active folic acid (FOLVITE) 1 mg tabletIndicatio ns:Anemia in neoplastic disease Take 1 tablet (1 mg) by mouth daily. 30 tablet 6 08/27/19 24 Active fluticasone propionate (FLONASE) 50 mcg/spray nasal spray Inhale 1 spray (50 mcg) into each nostril daily as needed for rhinitis or allergies. 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 90 tablet 3 03/02/20 23 024 Discontinued fluticasone propionate (FLONASE) 50 mcg/spray nasal sprayIndication s:Chronic lymphocytic leukemia of B-cell type Inhale 1 spray (50 mcg) into each nostril daily as needed for rhinitis or allergies. 16 g 05/28/19 24 024 Discontinued Active Problems Problem Noted Date Diagnosed Date Serum creatinine above reference range Assessment & Plan (12/12/2023 3:47 PM CDT): Creatinine 1.45. Patient encouraged to increase hydration. Continue to monitor. Family history of ovarian malignant tumor 2021 Assessment & Plan (12/08/2021 1:41 PM CDT): Mom with ovarian cancer. Patient has daughters and is interested in genetic testing. - Genetics referral. Gastrointestinal stromal tumor of rectum 022 Overview (10/25/2021): Incidentally-noted PET-avid mass protruding from serosal surface of rectum. Present on 09/2020 PETCT but given multiple other sites of extra-chichi disease (renal/adrenal), this was felt most likely CLL. Other sites of disease have resolved, but not this lesion. Biospy-proven GIST. Assessment & Plan (12/12/2023 2:23 PM CDT): Santosh Ferrera is a 68 y.o. 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 He continues surveillance for leukemia as well, and he sees their team this afternoon. Labs and PET/CT were reviewed with patient. He was advised his disease is stable. He will continue surveillance and RTC in 1 year with labs and CT A/P for restaging. Assessment & Plan (05/28/2023 10:51 AM ALIGNING INSPECTOR): Santosh Ferrera is a 67 y.o. 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 Labs and scans were reviewed with patient, and he was advised his disease is stable. He will continue on surveillance, and RTC on November [address] A/P when he sees leukemia team. If at that visit his disease remains stable, we will extend to annual surveillance. Patient was discussed with Dr. Momin. Assessment & Plan (03/04/2023 9:45 PM CDT): Santosh Ferrera is a 67 y/o man from [place], [place] with diagnosis of a <2 cm rectal GIST. It has measured 1.3 to 1.4 cm over the last year. He was seen as a new patient on 12/08/21, at which time I recommended close surveillance of the rectal GIST due to tumor being < 2 cm and him being on active treatment for CLL/SLL. He was supposed to have restaging CT abd/pelvis for restaging and then follow up with me. However, due to his history of fevers, chills and cough, he presented to [facility]. He had a CT chest done which did not reveal a cause of his fever. Work up continues. With regard to the GIST, I will see if inpatient leukemia team can obtain a CT abd/pelvis prior to discharge. If this is not feasible, then we can omit the scan this time, given his stability over time. I recommend he RTC in 3 months with staging scans to include CT abd/pelvis (he usually gets the scan done with lymphoma protocol). Assuming stable disease, I do not recommend any treatment at this time. Assessment & Plan (12/03/2022 12:52 PM CDT): Santosh Ferrera is a 67 y/o man from [place], [place] with diagnosis of a 2 cm rectal GIST. 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 Schuler (previously Dr. Víctor Cantu). He most recently completed treated on 1L acalabrutinib + venetoclax therapy on protocol [id number]. He states he was taken off trial 2 weeks ago. He was seen as a new patient on 12/08/21, at which time I recommended close surveillance of the rectal GIST due to tumor being < 2 cm and him being on active treatment for CLL/SLL. He presents today for follow up with restaging scans. Scans show slight decrease in size of the rectal GIST. Labs done 11/20/22 are significant for Platelets of 53. CT c/a/p done 11/16/22 showed stable perianal GIST. MRI pelvis done the day after my clinic visit showed interval decrease in the size of the T2 hypointense, low right rectal gastrointestinal stromal tumor, measuring 1.0 x 1.3 x 1.5 cm (previously 1.3 x 1.7 x 1.9 cm) (AP x TV x CC). Given that the tumor remains stable to slightly decreased in size, I do not see an indication to initiate systemic therapy at this time. In addition, his platelets have not recovered from his leukemia treatment and are only 53,000. I explained that if we were to initiate neoadjuvant Gleevec, his platelets would need to recover to at least 100,000. He has follow-up visit with Dr. Flores of colorectal surgery on 11/24/2022. I will await to hear his assessment of the GIST. If resection is recommended and neoadjuvant Gleevec is necessary to facilitate that surgery, I would be happy to initiate his therapy. Assessment & Plan (12/15/2021 7:25 AM CDT): Santosh Ferrera is a 66 y/o man from [place], [place] with diagnosis of a 2 cm rectal GIST. His most recent restaging scans done to stage his CLL/SLL, show a slight decrease in size of the rectal GIST from 1.8 cm to 1.4 cm. I reviewed these results with the patient. I will present his case at the sarcoma multi-disciplinary conference next week for consensus. However, at this point, with the tumor being stable to slightly smaller, I favor close observation until the end of his CLL/SLL treatment. I recommend restaging in 3-4 months, to coincide with his visit to Dr. Flores. Assessment & Plan (12/08/2021 1:11 PM CDT): Rectal GIST, < 2 cm. Stable on imaging since 09/2020. Given the small size and stability, surveillance is a reasonable strategy. Surgery is a possibility, and per patient's consult with Dr. Flores, the tumor could be resected without APR, so neoadjuvant therapy would not be indicated. - Will discuss his case at our next sarcoma multidisciplinary meeting. Then will have a phone visit with Don to discuss how to proceed. 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 Has had Prevnar 13. 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 Continue to monitor. Assessment & Plan (03/04/2023 9:47 PM CDT): Platelets- 49. Unclear etiology. Stable. Leukemia team aware and following. He has regular BM biopsies. Assessment & Plan (12/03/2022 12:53 PM CDT): Platelets are 53. This is likely due to the recent treatment for his CLL/SLL. I would recommend repeating counts in 2 to 4 weeks to ensure recovery. 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 Schuler (previously Dr. Víctor Cantu). In October 2022, he completed treatment with 1L acalabrutinib + venetoclax therapy on protocol [id number]. Will follow up with Dr. Schuler as needed. Assessment & Plan (12/15/2021 7:26 AM CDT): Will defer to Dr. Cantu to review bone marrow results with the patient. Continue treatment as per protocol/Dr. Cantu. Resolved Problems Problem Noted Date Diagnosed Date Resolved Date Fever presenting with condit ions classified elsewhere 03/04/2023 11/23/2023 Assessment & Plan (03/04/2023 9:49 PM CDT): Fever work up underway and receiving treatment in the inpatient setting. Not related to GIST. Iron deficiency anemia 06/11/202112/11 Overview (07/29/2021): Due to intravascular hemolysis from para-valvular leak Encounters Date Type Department Care Team Description 12/31/2023 Orders Only [facility] [address] [place] [address], 9th [place] [address] Kaylee Giles PA Gastrointestinal stromal tumor of rectum (Primary Dx) 12/12/2023 4:00 PM CDT Follow-Up [facility] [address] [place] [address], 8th [place] [address] Adriel Schuler MD Gastrointestinal stromal tumor of rectum (Primary Dx); Chronic lymphocytic leukemia of B-cell type; Anemia in neoplastic disease; Serum creatinine above reference range; Intravascular hemolysis; History of tissue graft aortic valve replacement 12/12/2023 2:30 PM CDT [facility] [address] [place] [address], 9th [place] [address] Eva Momin MD Gastrointestinal stromal tumor of rectum (Primary Dx); Other secondary thrombocytopenia; Serum creatinine above reference range 12/12/2023 1:10 PM CDT - 12/12/2023 11:59 PM CDT Hospital Encounter [facility] [address] [place] [address], [place] [address] Adriel Schuler MD Chronic lymphocytic leukemia of B-cell type; Anemia in neoplastic disease Discharge Disposition: Home 12/12/2023 Documentation [facility] [address] [place] [address] Main [facility], 8th [place] [address] Candis Palomares, RN 12/11/2023 10:30 AM CDT Ancillary Procedure [facility] [address] [facility] [address] [place] [address] Deloris Jimenez APRN Anemia in neoplastic disease 12/11/2023 Travel 11/29/2023 Orders Only [facility] [address] [place] [address] Main [facility], 9th [place] [address] Kaylee Giles PA Gastrointestinal stromal tumor of rectum (Primary Dx) 08/27/2023 10:00 AM CDT Follow[facility]Up [facility] [address] [place] [address] Main [facility], 8th [place] [address] Adriel Schuler MD Chronic lymphocytic leukemia of B-cell type 08/27/2023 7:44 AM CDT - 08/27/2023 11:59 PM CDT Hospital Encounter [facility] [address] [place] [address] Main [facility], [place] [address] Adriel Schuler MD Chronic lymphocytic leukemia of B-cell type Discharge Disposition: Home 08/27/2023 Orders Only [facility] [address] [place] [address] Main [facility], 8th [place] [address] Candis Palomares, it technical architect lymphocytic leukemia of B-cell type (Primary Dx) 08/27/2023 Documentation [facility] [address] [place] [address] Main [facility], 8th [place] [address] Candis Palomares, RN 08/27/2023 Orders Only [facility] [address] [place] [address] Main [facility], 8th [place] [address] Deloris Jimenez APRN Chronic lymphocytic leukemia of B-cell type (Primary Dx); Anemia in neoplastic disease 08/27/2023 Travel 08/07/2023 Refill Le[facility] Center [address] [place] [address] Main [facility], 8th [place] [address] Priyanka Dutton PA Chronic lymphocytic leukemia of B-cell type 05/28/2023 2:00 PM ALIGNING INSPECTOR Follow-Up [facility] [address] [place] [address], 8th [place] [address] Adriel Schuler MD Chronic lymphocytic leukemia of B-cell type 05/28/2023 10:48 AM ALIGNING INSPECTOR - 05/28/2023 11:59 PM ALIGNING INSPECTOR Hospital Encounter [facility] [address] [place] [address], [place] [address] Adriel Schuler MD Chronic lymphocytic leukemia of B-cell type Discharge Disposition: Home 05/28/2023 10:30 AM ALIGNING INSPECTOR [facility] [address] [place] [address], 9th [place] [address] Eva Momin MD Gastrointestinal stromal tumor of rectum (Primary Dx) 05/28/2023 Documentation [facility] [address] [place] [address], 8th [place] [address] Candis Palomares, CADENCE 05/28/2023 Travel 05/25/2023 8:10 AM ALIGNING INSPECTOR - 05/25/2023 11:59 PM ALIGNING INSPECTOR Hospital Encounter [facility] [address] [place] [address], [place] [address] Venkat Rangel PA Gastrointestinal stromal tumor of rectum Discharge Disposition: Home 05/25/2023 8:09 AM ALIGNING INSPECTOR Hospital Encounter Main CT IMAGING [address] [place] [address], 3rd [place] [address] Venkat Rangel PA Gastrointestinal stromal tumor of rectum Discharge Disposition: Home after 05/10/2023 Immunizations Name Administration Dates Next Due Moderna SARS-CoV-2 Monovalen t Booster Vaccination (50 mcg/0.25 mL) 11/11/2021 Moderna SARS-CoV-2 Vaccination 05/07/2021,2020,08/04/2020 Pneumococcal Conjugate 13-Valent 01/28/2021 Pneumococcal Polysaccharide PPSV23 08/29/2021 Surgical History Surgery Date Site/Laterality Comments KNEE ARTHROPLASTY 01/19/2017 - 02/17/2017 CARDIAC VALVE SURGERY CO COLONOSCOPY FLX DX W/CYRUS J SPEC WHEN PFRMD 06/23/2021 N/A Procedure: DIAGNOSTIC FLEXIBLE COLONOSCOPY PROXIMAL TO SPLENIC FLEXURE; Surgeon: Yonatan Rodriguez MD; Location: MAIN ENDOSCOPY; Service: GASTROENTEROLOGY CO ESOPHAGOGASTRODUODENOSCOP Y TRANSORAL DIAGNOSTIC 06/23/2021 Esophagus/N/A Procedure: DIAGNOSTIC UPPER GASTROINTESTINAL ENDOSCOPY; Surgeon: Yonatan Rodriguez MD; Location: MAIN ENDOSCOPY; Service: GASTROENTEROLOGY CO SIGMOIDOSCOPY FLX [facility] GID NDL ASPIR/BX 09/05/2021 N/A Procedure: FLEXIBLE SIGMOIDOSCOPY WITH TRANSENDOSCOPIC INTRAMURAL FINE NEEDLE ASPIRATION USING ULTRASOUND GUIDANCE; Surgeon: Long Knight MD; Location: MAIN ENDOSCOPY; Service: GASTROENTEROLOGY Medical History Medical History Date Comments Hypertension 08/2005 Hyperlipidemia 08/2005 Malignant lymphoma 08/2020 Family History Medical History Relation Name Comments Alcohol abuse Father Heart disease Father Diabetes Maternal Grandfather Lung cancer Maternal Uncle 1 -Unknown cancer Maternal Uncle 2 dx50s as bestos exposure -Unknown cancer Mother [id number] cancer?chemotherapyabdominal Relation Name Status Comments Brother (Age 56) Daughter 1 Alive Daughter 2 Alive Father (Age 66) Granddaughter 1 Alive Granddaughter 2 Alive Granddaughter 3 Alive Granddaughter 4 Alive Granddaughter 5 Alive Grandson Alive Maternal Aunt 1 Alive Maternal Aunt 2 Maternal Grandfather (Age 66) Maternal Grandmother (Age 96) Maternal Uncle 1 (Age 74) Maternal Uncle 2 Alive Mother (Age 86) Nephew 1 Alive Nephew 2 Alive Nephew 3 Alive Nephew 4 Alive Nephew 5 Alive Niece 1 Alive Niece 2 Alive Niece 3 Alive Niece 4 Alive Niece 5 Alive Niece 6 Alive Other 1 Alive Other 2 Alive Paternal Aunt 1 Alive Paternal Aunt 2 Alive Paternal Grandfather (Age 80s) Paternal Grandmother (Age 40s) Paternal Uncle 1 Alive Paternal Uncle 2 Alive Sister 1 Alive Sister 2 Alive Social History Tobacco Use Types Packs/Day Years Used Date Smoking Tobacco: Never Smokeless Tobacco: Never Alcohol Use Standard Drinks/Week Comments Yes 2 (1 standard drink = 0.6 oz pur e alcohol) once a week Sex and Gender Information Value Date Recorded Sex Assigned at Male 09/12/2020 11:44 AM CDT Legal Sex Male 3:54 PM CDT Gender Identity Not on file Sexual Orientation Not on file Occupation Industry Job Start Date Job End Date Business [employer] Not on file Not on file Not on file Obstetrics History Last Filed Vital Signs Vital Sign Reading Time Taken Comments Blood Pressure 136/80 12/12/2023 2:37 PM CDT Pulse 71 12/12/2023 2:37 PM CDT Temperature 36.7 C (98.1 F) 12/12/2023 2:37 PM CD T Respiratory Rate 18 12/12/2023 2:37 PM CDT Oxygen Saturation 96% 12/12/2023 2:37 PM CDT Inhaled Oxygen Concentration - - Weight 77.7 kg (171 lb 4.8 oz) 12/12/2023 2:37 P M CDT Height 168 cm (5' 6.14") 12/11/2023 10:35 AM CDT Body Mass Index 27.53 12/11/2023 10:35 AM CDT Plan of Treatment Upcoming Encounters Date Type Department Care Team (Late st Contact Info) Description 06/11/2024 9:00 AM ALIGNING INSPECTOR Appointment [facility] [address] [place] [address], [place] [address] Adriel Schuler MD [address] [place] [id number] [email or web address] 06/11/2024 10:40 AM ALIGNING INSPECTOR Follow-Up Le[facility]emia Center [address] [place] [address], 8th [place] [address] Adriel Schuler MD [address] [place] [phone] [email or web address] 11/27/2024 11:45 AM CDT Ancillary Procedure MD Aguero [address] [place] [address] Kaylee Giles PA [facility] [place] [address] [email or web address] 12/11/2024 6:15 AM CDT Appointment [facility] [address] [place] [id number] Kaylee Giles PA [facility] [place] [address] [email or web address] 12/11/2024 6:45 AM CDT [place]illary [facility] [address] [place] [address], 7th [place] [address] Kaylee Giles PA [address] [place] [id number] [email or web address] 12/11/2024 11:30 AM CDT [facility] [address] [place] [address], 9th [place] [address] Eva Momin MD [address] [place] [phone] [email or web address] Health Maintenance Due Date Last Done Comments COVID-19 Vaccine (2023-2 5 season) 2024 11/11/2021, 05/07/2021, 09/01/2020, Additional history exists Influenza Vaccine (#1) 2024 Pneumococcal Vaccine: 65+ Years Completed 2, 01/28/2021 Medical Devices Implanted Type Area Scientific Specialist Device Identifier Shelf Expiration Date Model / Serial / Lot Artificial Heart Valve (Bovine) Implant Heart Description:Ok to proceed pe r Dr. Marina. Metalware Metalware Left: Knee Procedures Procedure Name Priority Date/Time Associated Diagnosis Comments .CBC Routine 12/12/2023 1:24 PM CDT Chronic lymphocytic leukemia of B-cell type HP FC LYMPHOCYTE SUBSET Routine 12/12/19 1:24 PM CDT Chronic lymphocytic leukemia of B-cell type HP FC MRD CLL INTERPRETATION AND REPORT Routine 12/12/2023 1:24 PM CDT Chronic lymphocytic leukemia of B-cell type COMPLETE BLOOD COUNT W/ DIFFERENTIAL Routine 12/12/2023 1:24 PM CDT Chronic lymphocytic leukemia of B-cell type TYPE AND SCREEN Routine 12/12/2023 1:24 PM CDT Chronic lymphocytic leukemia of B-cell type RETICULOCYTE COUNT AUTOMATED Routine 12/12/2023 1:24 PM CDT Chronic lymphocytic leukemia of B-cell type BETA 2 MICROGLOBULIN Routine 12/12/2023 1:24 PM CDT Chronic lymphocytic leukemia of B-cell type IMMUNOGLOBULIN G Routine 12/12/2023 1:24 PM CDT Chronic lymphocytic leukemia of B-cell type IMMUNOGLOBULIN M Routine 12/12/2023 1:24 PM CDT Chronic lymphocytic leukemia of B-cell type IMMUNOGLOBULIN A Routine 12/12/2023 1:24 PM CDT Chronic lymphocytic leukemia of B-cell type ASPARTATE AMINOTRANSFERASE Routine 12/12/2023 1:24 PM CDT Chronic lymphocytic leukemia of B-cell type MAGNESIUM LEVEL Routine 12/12/2023 1:24 PM CDT Chronic lymphocytic leukemia of B-cell type ELECTROLYTE PANEL Routine 12/12/2023 1:2 4 PM CDT Chronic lymphocytic leukemia of B-cell type ALANINE AMINOTRANSFERASE Routine 024 1:24 PM CDT Chronic lymphocytic leukemia of B-cell type LACTATE DEHYDROGENASE Routine 12/12/2023 1:24 PM CDT Chronic lymphocytic leukemia of B-cell type ALKALINE PHOSPHATASE Routine 12/12/2023 1:24 PM CDT Chronic lymphocytic leukemia of B-cell type FRACTIONATED BILIRUBIN Routine 1:24 PM CDT Chronic lymphocytic leukemia of B-cell type URIC ACID Routine 12/12/2023 1:24 PM CDT Chronic lymphocytic leukemia of B-cell type CREATININE Routine 12/12/2023 1:24 PM CDT Chronic lymphocytic leukemia of B-cell type BLOOD UREA NITROGEN Routine 12/12/2023 1 :24 PM CDT Chronic lymphocytic leukemia of B-cell type GLUCOSE, RANDOM Routine 12/12/2023 1:24 PM CDT Chronic lymphocytic leukemia of B-cell type PHOSPHORUS LEVEL Routine 12/12/2023 1:24 PM CDT Chronic lymphocytic leukemia of B-cell type CALCIUM LEVEL Routine 12/12/2023 1:24 PM CDT Chronic lymphocytic leukemia of B-cell type ALBUMIN LEVEL Routine 12/12/2023 1:24 PM CDT Chronic lymphocytic leukemia of B-cell type TOTAL PROTEIN Routine 12/12/2023 1:24 PM CDT Chronic lymphocytic leukemia of B-cell type PETCT F18 FDG (FLUORODEOXYGLUCOSE) WITH CONTRAST Routine 12/11/2023 12:15 PM CDT Anemia in neoplastic disease POC CREATININE Routine 12/11/2023 10:43 AM CDT .CBC Routine 08/27/2023 8:05 AM CDT Chronic lymphocytic leukemia of B-cell type HP FC LYMPHOCYTE SUBSET Routine 08/27/19 24 8:05 AM CDT Chronic lymphocytic leukemia of B-cell type HP FC MRD CLL INTERPRETATION AND REPORT Routine 08/27/2023 8:05 AM CDT Chronic lymphocytic leukemia of B-cell type COMPLETE BLOOD COUNT W/ DIFFERENTIAL Routine 08/27/2023 8:05 AM CDT Chronic lymphocytic leukemia of B-cell type TYPE AND SCREEN Routine 08/27/2023 8:05 AM CDT Chronic lymphocytic leukemia of B-cell type RETICULOCYTE COUNT AUTOMATED Routine 08/27/2023 8:05 AM CDT Chronic lymphocytic leukemia of B-cell type BETA 2 MICROGLOBULIN Routine 08/27/2023 8:05 AM CDT Chronic lymphocytic leukemia of B-cell type IMMUNOGLOBULIN G Routine 08/27/2023 8:05 AM CDT Chronic lymphocytic leukemia of B-cell type IMMUNOGLOBULIN M Routine 08/27/2023 8:05 AM CDT Chronic lymphocytic leukemia of B-cell type IMMUNOGLOBULIN A Routine 08/27/2023 8:05 AM CDT Chronic lymphocytic leukemia of B-cell type ASPARTATE AMINOTRANSFERASE Routine 08/27/2023 8:05 AM CDT Chronic lymphocytic leukemia of B-cell type MAGNESIUM LEVEL Routine 08/27/2023 8:05 AM CDT Chronic lymphocytic leukemia of B-cell type ELECTROLYTE PANEL Routine 08/27/2023 8:0 5 AM CDT Chronic lymphocytic leukemia of B-cell type ALANINE AMINOTRANSFERASE Routine 024 8:05 AM CDT Chronic lymphocytic leukemia of B-cell type LACTATE DEHYDROGENASE Routine 08/27/2023 8:05 AM CDT Chronic lymphocytic leukemia of B-cell type ALKALINE PHOSPHATASE Routine 08/27/2023 8:05 AM CDT Chronic lymphocytic leukemia of B-cell type FRACTIONATED BILIRUBIN Routine 8:05 AM CDT Chronic lymphocytic leukemia of B-cell type URIC ACID Routine 08/27/2023 8:05 AM CDT Chronic lymphocytic leukemia of B-cell type CREATININE Routine 08/27/2023 8:05 AM CDT Chronic lymphocytic leukemia of B-cell type BLOOD UREA NITROGEN Routine 08/27/2023 8 :05 AM CDT Chronic lymphocytic leukemia of B-cell type GLUCOSE, RANDOM Routine 08/27/2023 8:05 AM CDT Chronic lymphocytic leukemia of B-cell type PHOSPHORUS LEVEL Routine 08/27/2023 8:05 AM CDT Chronic lymphocytic leukemia of B-cell type CALCIUM LEVEL Routine 08/27/2023 8:05 AM CDT Chronic lymphocytic leukemia of B-cell type ALBUMIN LEVEL Routine 08/27/2023 8:05 AM CDT Chronic lymphocytic leukemia of B-cell type TOTAL PROTEIN Routine 08/27/2023 8:05 AM CDT Chronic lymphocytic leukemia of B-cell type .CBC Routine 05/28/2023 11:22 AM ALIGNING INSPECTOR Chronic lymphocytic leukemia of B-cell type HP FC LYMPHOCYTE SUBSET Routine 05/28/19 11:22 AM ALIGNING INSPECTOR Chronic lymphocytic leukemia of B-cell type HP FC MRD CLL INTERPRETATION AND REPORT Routine 05/28/2023 11:22 AM ALIGNING INSPECTOR Chronic lymphocytic leukemia of B-cell type COMPLETE BLOOD COUNT W/ DIFFERENTIAL Routine 05/28/2023 11:22 AM ALIGNING INSPECTOR Chronic lymphocytic leukemia of B-cell type TYPE AND SCREEN Routine 05/28/2023 11:22 AM ALIGNING INSPECTOR Chronic lymphocytic leukemia of B-cell type RETICULOCYTE COUNT AUTOMATED Routine 05/28/2023 11:22 AM ALIGNING INSPECTOR Chronic lymphocytic leukemia of B-cell type BETA 2 MICROGLOBULIN Routine 05/28/2023 11:22 AM ALIGNING INSPECTOR Chronic lymphocytic leukemia of B-cell type IMMUNOGLOBULIN G Routine 05/28/2023 11:2 2 AM ALIGNING INSPECTOR Chronic lymphocytic leukemia of B-cell type IMMUNOGLOBULIN M Routine 05/28/2023 11:2 2 AM ALIGNING INSPECTOR Chronic lymphocytic leukemia of B-cell type IMMUNOGLOBULIN A Routine 05/28/2023 11:2 2 AM ALIGNING INSPECTOR Chronic lymphocytic leukemia of B-cell type ASPARTATE AMINOTRANSFERASE Routine 05/28/2023 11:22 AM ALIGNING INSPECTOR Chronic lymphocytic leukemia of B-cell type MAGNESIUM LEVEL Routine 05/28/2023 11:22 AM ALIGNING INSPECTOR Chronic lymphocytic leukemia of B-cell type ELECTROLYTE PANEL Routine 05/28/2023 11: 22 AM ALIGNING INSPECTOR Chronic lymphocytic leukemia of B-cell type ALANINE AMINOTRANSFERASE Routine 11:22 AM ALIGNING INSPECTOR Chronic lymphocytic leukemia of B-cell type LACTATE DEHYDROGENASE Routine 05/28/2023 11:22 AM ALIGNING INSPECTOR Chronic lymphocytic leukemia of B-cell type ALKALINE PHOSPHATASE Routine 05/28/2023 11:22 AM ALIGNING INSPECTOR Chronic lymphocytic leukemia of B-cell type FRACTIONATED BILIRUBIN Routine 11:22 AM ALIGNING INSPECTOR Chronic lymphocytic leukemia of B-cell type URIC ACID Routine 05/28/2023 11:22 AM ALIGNING INSPECTOR Chronic lymphocytic leukemia of B-cell type CREATININE Routine 05/28/2023 11:22 AM ALIGNING INSPECTOR Chronic lymphocytic leukemia of B-cell type BLOOD UREA NITROGEN Routine 05/28/2023 1 1:22 AM ALIGNING INSPECTOR Chronic lymphocytic leukemia of B-cell type GLUCOSE, RANDOM Routine 05/28/2023 11:22 AM ALIGNING INSPECTOR Chronic lymphocytic leukemia of B-cell type PHOSPHORUS LEVEL Routine 05/28/2023 11:2 2 AM ALIGNING INSPECTOR Chronic lymphocytic leukemia of B-cell type CALCIUM LEVEL Routine 05/28/2023 11:22 AM ALIGNING INSPECTOR Chronic lymphocytic leukemia of B-cell type ALBUMIN LEVEL Routine 05/28/2023 11:22 AM ALIGNING INSPECTOR Chronic lymphocytic leukemia of B-cell type TOTAL PROTEIN Routine 05/28/2023 11:22 AM ALIGNING INSPECTOR Chronic lymphocytic leukemia of B-cell type CT ABDOMEN PELVIS W CONTRAST Routine 05/25/2023 10:28 AM ALIGNING INSPECTOR Gastrointestinal stromal tumor of rectum POC CREATININE Routine 05/25/2023 9:35 AM ALIGNING INSPECTOR COMPREHENSIVE METABOLIC PANEL Routine 05/25/2023 9:32 AM ALIGNING INSPECTOR Gastrointestinal stromal tumor of rectum after 05/10/2023 Results * Glucose, Random (12/12/2023 1:24 PM CDT) Only the most recent of3 resultswithin the time period is included. Glucose Random 81 70 - 199 mg/dL 12/12/2023 2:26 PM CDT [facility] Blood Peripheral blood specimen / Unknown Venipuncture / Unknown 12/12/2023 1:24 PM CDT 12/12/2023 1:30 PM CDT Narrative [facility] - 12/12/2023 2:26 PM CDT Effective 12/15/15, the glucose reference intervals have been updated based on [place] [employer] guidelines (Standards of Medical Care in Diabetes 2016. Diabetes Care 2016; 39: S13-S22). Fasting blood glucose: Normal: 70-99 mg/dL Impaired fasting glucose (increased risk for diabetes or pre-diabetes): 100-125 mg/dL Diabetes mellitus: >/=126 mg/dL Random blood glucose: Normal: 70-199 mg/dL Note: Random glucose >100 mg/dL is associated with increased risk for diabetes us Adriel Schuler MD LAB BLOOD ORDERABLES Final Resul t [facility] Unless otherwise noted, all lab tests performed by: Division of Pathology and Laboratory Medicine [address] [place] [id number] * (ABNORMAL) .CBC (12/12/2023 1:24 PM CDT) Only the most recent of3 resultswithin the time period is included. White Blood Cell 8.5 4.1 - 10.5 K/uL 12/12/2023 2:11 PM CDT [facility] Comment:This result was prev iously suppressed from the chart. Red Blood Cell 4.82 4.30 - 6.04 M/uL 12/12/2023 2:11 PM CDT [facility] Hemoglobin 15.0 13.3 - 17.4 g/dL 12/12/2023 2:11 PM CDT [facility] Hematocrit 43.1 39.5 - 51.8 % 12/12/2023 2:11 PM CDT [facility] Mean Cell Volume 89 82 - 99 fL 12/12/2023 2:11 PM CDT [facility] Mean Cell Hemoglobin 31.1 26.6 - 33.2 pg 12/12/2023 2:11 PM CDT [facility] Mean Cell Hemoglobin Concentration 34.8 31.1 - 35.2 g/dL 12/12/2023 2:11 PM CDT [facility] RDW-SD 40.4 37.5 - 49.7 fL 12/12/2023 2:11 PM CDT [facility] Red Cell Diameter Width 12.4 11.6 - 15.5 % 12/12/2023 2:11 PM CDT [facility] Platelet 70(L) 160 - 397 K/uL 12/12/2023 2:11 PM CDT [facility] Comment:This result was prev iously suppressed from the chart. Mean Platelet Volume 12.1 9.1 - 12.6 fL 12/12/2023 2:11 PM CDT [facility] Comment:This result was prev iously suppressed from the chart. INRBC 0.0 0.0 - 0.1 /100 WBC 12/12/2023 2:11 PM CDT [facility] Comment: The INRBC (instrument NRBC) value reflects the enumeration of nucleated red blood cells contained in a 200uL sample of whole blood analyzed by the instrument. This value may differ from the NRBC value reported in a manual differential, which is based on a 100 cell differential. This result was previously suppressed from the chart. Neutrophil % 77.9(H) 43.2 - 72.7 % 12/12/2023 2:11 PM CDT [facility] Comment:This result was prev iously suppressed from the chart. Lymphocyte % 12.5(L) 16.8 - 46.2 % 12/12/2023 2:11 PM CDT [facility] Comment:This result was prev iously suppressed from the chart. Monocyte % 6.6 5.1 - 12.5 % 12/12/2023 2:11 PM CDT [facility] Comment:This result was prev iously suppressed from the chart. Eosinophil % 1.7 0.4 - 6.3 % 12/12/2023 2:11 PM CDT [facility] Comment:This result was prev iously suppressed from the chart. Basophil % 0.5 0.2 - 1.4 % 12/12/2023 2:11 PM CDT [facility] Comment:This result was prev iously suppressed from the chart. IGRE % 0.8 0.1 - 1.5 % 12/12/2023 2:11 PM CDT [facility] Comment: The IGRE% includes Metamyelocytes, Myelocytes and Promyelocytes. This result was previously suppressed from the chart. Neutrophil Abs 6.60 1.95 - 7.25 K/uL 12/12/2023 2:11 PM CDT [facility] Comment:This result was prev iously suppressed from the chart. Lymphocyte Abs 1.06 1.01 - 3.24 K/uL 12/12/2023 2:11 PM CDT [facility] Comment:This result was prev iously suppressed from the chart. Monocyte Abs 0.56 0.24 - 0.85 K/uL 12/12/2023 2:11 PM CDT [facility] Comment:This result was prev iously suppressed from the chart. Eosinophil Abs 0.14 0.02 - 0.50 K/uL 12/12/2023 2:11 PM CDT [facility] Comment:This result was prev iously suppressed from the chart. Basophil Abs 0.04 0.02 - 0.09 K/uL 12/12/2023 2:11 PM CDT [facility] Comment:This result was prev iously suppressed from the chart. IG Abs 0.07 0.01 - 0.12 K/uL 12/12/2023 2:11 PM CDT [facility] Comment:This result was prev iously suppressed from the chart. Blood Peripheral blood specimen / Unknown Venipuncture / Unknown 12/12/2023 1:24 PM CDT 12/12/2023 1:30 PM CDT us Adriel Schuler MD LAB BLOOD ORDERABLES Final Resul t [facility] Unless otherwise noted, all lab tests performed by: Division of Pathology and Laboratory Medicine [address] [place] [id number] * Fractionated Bilirubin (12/12/2023 1:24 PM CDT) Only the most recent of3 resultswithin the time period is included. Bilirubin Direct 0.2 0.0 - 0.3 mg/dL 12/12/2023 2:26 PM CDT [facility] Comment:Indocyanine Green (I CG) may cause falsely elevated bilirubin results. Total and direct bilirubin must not be measured from samples containing indocyanine green. Bilirubin Indirect 0.6 0.0 - 0.9 mg/dL 12/12/2023 2:26 PM CDT [facility] Bilirubin Total 0.8 0.0 - 1.2 mg/dL 12/12/2023 2:26 PM CDT [facility] Comment:Indocyanine Green (I CG) may cause falsely elevated bilirubin results. Total and direct bilirubin must not be measured from samples containing indocyanine green. False elevation of total bilirubin can be seen in patients with IgG concentrations above 28 g/L. Blood Peripheral blood specimen / Unknown Venipuncture / Unknown 12/12/2023 1:24 PM CDT 12/12/2023 1:30 PM CDT us Adriel Schuler MD LAB BLOOD ORDERABLES Final Resul t [facility] Unless otherwise noted, all lab tests performed by: Division of Pathology and Laboratory Medicine [address] [place] [id number] * MRD CLL Interpretation and Report (12/12/2023 1:24 PM CDT) Only the most recent of3 resultswithin the time period is included. MRD CLL Interpretation Blood, U Negative for minimal residual chronic lymphocytic leukemia/small lymphocytic lymphoma, at a sensitivity of 0.01% 12/13/2023 5:39 PM CDT [facility] Assay Sensitivity 0.01 024 5:39 PM CDT [facility] Total Events Acq 718,189 12/13/19 5:39 PM CDT [facility] Nucleated Events 656,197 12/13/19 5:39 PM CDT [facility] ABERRANT CELL PHENOTYPE 12/13/2023 5:39 PM CDT [facility] MRD CLL Markers Assessed CD5, CD19, CD20, CD22, CD38, CD43, CD45, CD79b, ROR1, CD81 12/13/2023 5:39 PM CDT [facility] Disclaimer This assay has been validated to a sensitivity level of 0.01% (1 cell in 10,000) and has been cross-validated against the standardized 4-color protocol for detection of minimal residual disease. This requires an adequate specimen, with acquisition of at least 200,000 events, for a valid negative result. Note that positive results may be obtained with fewer events. A positive result below the level of 0.01% may be achieved, but the clinical significance has not been fully validated. Interpretive comments are based on review by the pathologist of the results of each antibody of this specimen. This test was developed and its performance characteristics determined by [facility] Clinical Flow Cytometry Laboratory. It has not been cleared or approved by the US Food and Drug Administration. FDA does not require this test go through premarket FDA review. This test is used for clinical purposes. It should not be regarded as investigational or for research. This laboratory is certified under the Clinical Laboratory Improvement Amendment of 1988 (CLIA) as qualified to perform high complexity clinical laboratory testing. 12/13/2023 5:39 PM CDT [facility]OW CYTOMETRY Pathologist Signature . 12/13/2023 5:39 PM CDT [facility] Blood Venipuncture / Unknown 12/12/2023 1:24 PM CDT 12/12/2023 1:30 PM CDT us Adriel Schuler MD [facility] HP FLOW CYTOMETRY (HP FC) Fi nal Result FLOW CYTOMETRY [facility] [place] [facility] Flow Cytometry Laboratory [address] [place] [address] * (ABNORMAL) FC Lymphocyte Subset Panel (12/12/2023 1:24 PM CDT) Only the most recent of3 resultswithin the time period is included. Gated Lymphocyte Region 7.2 % 12/12/2023 7:00 PM CDT [facility]OW CYTOMETRY CD3+ 92.5(H) 54.9 - 90.4 % 12/12/2023 7:00 PM CDT [facility]TOM[facility] CD3+ Absolute 566 410 - 2,259 cells/mc L 12/12/2023 7:00 PM CDT [facility] AP LABS CD3+CD4+ 32.6 31.1 - 60.6 % 12/12/2023 7:00 PM CDT [facility]OW CYTOMETRY CD3+CD4+ Absolute 200(L) 263 - 1,426 cells/mc L 12/12/2023 7:00 PM CDT [facility] AP LABS CD3+CD8+ 52.3(H) 10.8 - 39.7 % 12/12/2023 7:00 PM CDT FLOW CYTOMETRY CD3+CD8+ Absolute 320 30 - 891 cells/mc L 12/12/2023 7:[address] [facility] LABS CD4+/CD8+ Ratio 0.62(L) 1.53 - 2.88 12/12/2023 7:[address] [facility] CD16+CD56+ 6.1 1.2 - 25.4 % 12/12/2023 7:00 PM CDT FLOW CYTOMETRY CD16+CD56+ Absolute 37 0 - 520 cells/mc L 12/12/2023 7:[address] [facility] CD19+ 0.4(L) 4.9 - 21.0 % 12/12/2023 7:00 PM CDT FLOW CYTOMETRY CD19+ Absolute 2(L) 27 - 447 cells/mc L 12/12/2023 7:00 PM CDT [facility] Disclaimer Interpretive comments are based on review by the pathologist of the results of each antibody of this specimen. This test was developed and its performance characteristics determined by [facility] Clinical Flow Cytometry Laboratory. It has not been cleared or approved by the US Food and Drug Administration. FDA does not require this test go through premarket FDA review. This test is used for clinical purposes. It should not be regarded as investigational or for research. This laboratory is certified under the Clinical Laboratory Improvement Amendment of 1988 (CLIA) as qualified to perform high complexity clinical laboratory testing. 12/12/2023 7:00 PM CDT FLOW CYTOMETRY Pathologist Signature . 12/12/2023 7:00 PM CDT [facility]TOM[facility] Blood Venipuncture / Unknown 12/12/2023 1:24 PM CDT 12/12/2023 1:30 PM CDT us Adriel Schuler MD [facility] HP FLOW CYTOMETRY (HP FC) Fi nal Result FLOW CYTOMETRY [facility] Flow Cytometry Laboratory [address] [place] [address] [facility] [address] [place] [address], [place] * (ABNORMAL) Reticulocyte Count, Auto (12/12/2023 1:24 PM CDT) Only the most recent of3 resultswithin the time period is included. [facility] Reticulocyte Count Automated 2.89(H) 0.92 - 2.71 % 12/12/2023 2:02 PM CDT [facility] RETHE 35.3 29.9 - 38.4 pg 12/12/2023 2:02 PM CDT [facility] IRF 19.8 4.4 - 22.0 % 12/12/2023 2:02 PM CDT [facility] Retic Absolute 0.1393(H) 0.04 - 0.13 M/uL 12/12/2023 2:02 PM CDT [facility] Blood Peripheral blood specimen / Unknown Venipuncture / Unknown 12/12/2023 1:24 PM CDT 12/12/2023 1:30 PM CDT us Adriel Schuler MD LAB BLOOD ORDERABLES Final Resul t [facility] Unless otherwise noted, all lab tests performed by: Division of Pathology and Laboratory Medicine [address] [place] [address] * Type and Screen (12/12/2023 1:24 PM CDT) Only the most recent of3 resultswithin the time period is included. Pathologist [facility] ABORh A POS 12/12/2023 1:10 PM CDT [facility] ABSC Negative 12/12/2023 1:10 PM CDT [facility] Clot Expiration 12/15/2023 23:59 12/12/2023 1:10 PM CDT [facility] Historical Record Check Complete 12/12/2023 1:10 PM CDT [facility] Blood Peripheral blood specimen / Unknown Venipuncture / Unknown 12/12/2023 1:24 PM CDT 12/12/2023 1:30 PM CDT Adriel Schuler MD BLOOD BANK TEST ORDERABLES Final Result [facility] - [facility] Transfusion [facility] [address] [facility] [address] [place] [address] * (ABNORMAL) Uric Acid (12/12/2023 1:24 PM CDT) Only the most recent of3 resultswithin the time period is included. Uric Acid 7.3(H) 3.4 - 7.0 mg/dL 12/12/2023 2:26 PM CDT [facility] Blood Peripheral blood specimen / Unknown Venipuncture / Unknown 12/12/2023 1:24 PM CDT 12/12/2023 1:30 PM CDT Adriel Schuler MD LAB BLOOD ORDERABLES Final Resul t Performing Organization Address City/[facility] Co de Phone Number [facility] Unless otherwise noted, all lab tests performed by: Division of Pathology and Laboratory Medicine [address] [place] [phone] * BUN (12/12/2023 1:24 PM CDT) Only the most recent of3 resultswithin the time period is included. BUN 18 6 - 23 mg/dL 12/12/2023 2:26 PM CDT [facility] Blood Peripheral blood specimen / Unknown Venipuncture / Unknown 12/12/2023 1:24 PM CDT 12/12/2023 1:30 PM CDT us Adriel Schuler MD LAB BLOOD ORDERABLES Final Resul t Performing Organization Address City/[facility]/ZIP Co de Phone Number [facility] Unless otherwise noted, all lab tests performed by: Division of Pathology and Laboratory Medicine [address] [place] [id number] * Alanine Aminotransferase (12/12/2023 1:24 PM CDT) Only the most recent of3 resultswithin the time period is included. ALT 41 <=41 U/L 12/12/2023 2:2 6 PM CDT [facility] Blood Peripheral blood specimen / Unknown Venipuncture / Unknown 12/12/2023 1:24 PM CDT 12/12/2023 1:30 PM CDT us Adriel Schuler MD LAB BLOOD ORDERABLES Final Resul t Performing Organization Address City/[facility] de Phone Number [facility] Unless otherwise noted, all lab tests performed by: Division of Pathology and Laboratory Medicine [address] [place] [phone] * (ABNORMAL) Aspartate Aminotransferase (12/12/2023 1:24 PM CDT) Only the most recent of3 resultswithin the time period is included. AST 43(H) <=40 U/L 12/12/2023 2:2 6 PM CDT [facility] Blood Peripheral blood specimen / Unknown Venipuncture / Unknown 12/12/2023 1:24 PM CDT 12/12/2023 1:30 PM CDT us Adriel Schuler MD LAB BLOOD ORDERABLES Final Resul t Performing Organization Address [facility] de Phone Number [facility] Unless otherwise noted, all lab tests performed by: Division of Pathology and Laboratory Medicine [address] [place] [phone] * Total Protein (12/12/2023 1:24 PM CDT) Only the most recent of3 resultswithin the time period is included. Tot Protein 7.3 6.4 - 8.3 gm/dL 12/12/2023 2:26 PM CDT [facility] Blood Peripheral blood specimen / Unknown Venipuncture / Unknown 12/12/2023 1:24 PM CDT 12/12/2023 1:30 PM CDT Narrative [facility] - 12/12/2023 2:26 PM CDT Reference range established based on adult population Adriel Schuler MD LAB BLOOD ORDERABLES Final Resul t Performing Organization Address City/[facility] de Phone Number [facility] Unless otherwise noted, all lab tests performed by: Division of Pathology and Laboratory Medicine [address] [place] [phone] * Phosphorus Level (12/12/2023 1:24 PM CDT) Only the most recent of3 resultswithin the time period is included. Phosphorus Level 3.6 2.5 - 4.5 mg/dL 12/12/2023 2:26 PM CDT [facility] Blood Peripheral blood specimen / Unknown Venipuncture / Unknown 12/12/2023 1:24 PM CDT 12/12/2023 1:30 PM CDT Adriel Schuler MD LAB BLOOD ORDERABLES Final Resul t Performing Organization Address [facility] de Phone Number [facility] Unless otherwise noted, all lab tests performed by: Division of Pathology and Laboratory Medicine [address] [place] [phone] * Alkaline Phosphatase (12/12/2023 1:24 PM CDT) Only the most recent of3 resultswithin the time period is included. Alkaline Phosphatase 109 40 - 129 U/L 12/12/2023 2:26 PM CDT [facility] Blood Peripheral blood specimen / Unknown Venipuncture / Unknown 12/12/2023 1:24 PM CDT 12/12/2023 1:30 PM CDT Adriel Schuler MD LAB BLOOD ORDERABLES Final Resul t Performing Organization Address City/[facility] de Phone Number [facility] Unless otherwise noted, all lab tests performed by: Division of Pathology and Laboratory Medicine [address] [place] [phone] * Magnesium Level (12/12/2023 1:24 PM CDT) Only the most recent of3 resultswithin the time period is included. Magnesium Level 2.4 1.6 - 2.6 mg/dL 12/12/2023 2:26 PM CDT [facility] Blood Peripheral blood specimen / Unknown Venipuncture / Unknown 12/12/2023 1:24 PM CDT 12/12/2023 1:30 PM CDT Adriel Schuler MD LAB BLOOD ORDERABLES Final Resul t Performing Organization Address City/[facility] Co de Phone Number [facility] Unless otherwise noted, all lab tests performed by: Division of Pathology and Laboratory Medicine [address] [place] [phone] * (ABNORMAL) LDH (12/12/2023 1:24 PM CDT) Only the most recent of3 resultswithin the time period is included. LDH 596(H) 135 - 225 U/L 12/12/2023 2:31 PM CDT [facility] Comment:Specimen is hemolyze d. Results may be falsely elevated. Repeat test if needed. Blood Peripheral blood specimen / Unknown Venipuncture / Unknown 12/12/2023 1:24 PM CDT 12/12/2023 1:30 PM CDT Narrative [facility] - 12/12/2023 2:31 PM CDT Results greater than 1651 U/L may not be reliable due to matrix effect with extended dilution as it exceeds the heavy equipment sales associate's recommended limit. Caution should be exercised when interpreting such values and done in conjunction with clinical context. Adriel Schuler MD LAB BLOOD ORDERABLES Final Resul t Performing Organization Address City/[facility]/ZIP Co de Phone Number [facility] Unless otherwise noted, all lab tests performed by: Division of Pathology and Laboratory Medicine [address] [place] [phone] * (ABNORMAL) IgA (12/12/2023 1:24 PM CDT) Only the most recent of3 resultswithin the time period is included. IgA 53(L) 85 - 499 mg/dL 12/12/2023 6:34 PM CDT [facility] Blood Peripheral blood specimen / Unknown Venipuncture / Unknown 12/12/2023 1:24 PM CDT 12/12/2023 1:30 PM CDT Adriel Schuler MD LAB BLOOD ORDERABLES Final Resul t Performing Organization Address City/[facility] Co de Phone Number [facility] Unless otherwise noted, all lab tests performed by: Division of Pathology and Laboratory Medicine [address] [place] [phone] * IgM (12/12/2023 1:24 PM CDT) Only the most recent of3 resultswithin the time period is included. IgM 78 35 - 242 mg/dL 12/12/2023 6:34 PM CDT [facility] Blood Peripheral blood specimen / Unknown Venipuncture / Unknown 12/12/2023 1:24 PM CDT 12/12/2023 1:30 PM CDT Adriel Schuler MD LAB BLOOD ORDERABLES Final Resul t Performing Organization Address [facility] de Phone Number [facility] Unless otherwise noted, all lab tests performed by: Division of Pathology and Laboratory Medicine [address] [place] [phone] * IgG (12/12/2023 1:24 PM CDT) Only the most recent of3 resultswithin the time period is included. IgG 730 610 - 1,616 mg/dL 12/12/2023 6:34 PM CDT [facility] Blood Peripheral blood specimen / Unknown Venipuncture / Unknown 12/12/2023 1:24 PM CDT 12/12/2023 1:30 PM CDT Adriel Schuler MD LAB BLOOD ORDERABLES Final Resul t Performing Organization Address City/[facility] Co de Phone Number [facility] Unless otherwise noted, all lab tests performed by: Division of Pathology and Laboratory Medicine [address] [place] [phone] * (ABNORMAL) Creatinine (12/12/2023 1:24 PM CDT) Only the most recent of3 resultswithin the time period is included. Creatinine 1.45(H) 0.67 - 1.17 mg/dL 12/12/2023 2:26 PM CDT [facility] eGFR 53(L) >=60 mL/min/1. 73 sq. m 12/12/2023 2:26 PM CDT [facility] Comment: The eGFRcr is calculated with the 2020 CKD-EPI creatinine equation using creatinine, patient's age, and sex for adults 18 years of age and older. Other factors, especially muscle mass, may affect accuracy and need to be considered. According to the Kidney Disease: Improving Global Outcomes (KDIGO) CKD Work Group 2012 Clinical Practice Guideline, chronic kidney disease (CKD) is defined as the abnormalities of kidney structure or function, present for more than 3 months, with implications for health. CKD should be classified by cause, GFR category, and albuminuria category. KDIGO guidelines provide the following GFR categories. Stage / Description / GFR mL/min/1.73 m2: G1* / Normal or high / >= 90 G2* / Mildly decreased / 60-89 G3a / Mildly to moderately decreased / 45-59 G3b / Moderately to severely decreased / 30-44 G4 / Severely decreased / 15-29 G5 / Kidney failure / <15 *In the absence of evidence of kidney damage, neither G1 nor G2 fulfill criteria for CKD. Blood Peripheral blood specimen / Unknown Venipuncture / Unknown 12/12/2023 1:24 PM CDT 12/12/2023 1:30 PM CDT us Adriel Schuler MD LAB BLOOD ORDERABLES Final Resul t [facility] Unless otherwise noted, all lab tests performed by: Division of Pathology and Laboratory Medicine [address] [place] [phone] * Calcium Level (12/12/2023 1:24 PM CDT) Only the most recent of3 resultswithin the time period is included. Calcium Level Total 9.9 8.2 - 10.2 mg/dL 12/12/2023 2:26 PM CDT [facility] Blood Peripheral blood specimen / Unknown Venipuncture / Unknown 12/12/2023 1:24 PM CDT 12/12/2023 1:30 PM CDT Adriel Schuler MD LAB BLOOD ORDERABLES Final Resul t Performing Organization Address [facility] de Phone Number [facility] Unless otherwise noted, all lab tests performed by: Division of Pathology and Laboratory Medicine [address] [place] [phone] * (ABNORMAL) Beta 2 Microglobulin (12/12/2023 1:24 PM CDT) Only the most recent of3 resultswithin the time period is included. [facility] Beta 2 Microglobulin 2.60(H) 0.80 - 2.30 mg/L 12/12/2023 6:34 PM CDT [facility] Blood Peripheral blood specimen / Unknown Venipuncture / Unknown 12/12/2023 1:24 PM CDT 12/12/2023 1:30 PM CDT Narrative [facility] - 12/12/2023 6:34 PM CDT This test is measured by turbidimetric methodology on [facility] Optilite analyzer. Results obtained in different methods are not interchangeable. Adriel Schuler MD LAB BLOOD ORDERABLES Final Resul t Performing Organization Address [facility] de Phone Number [facility] Unless otherwise noted, all lab tests performed by: Division of Pathology and Laboratory Medicine [address] [place] [phone] * Albumin Level (12/12/2023 1:24 PM CDT) Only the most recent of3 resultswithin the time period is included. [facility] Albumin Level 4.9 3.5 - 5.2 gm/dL 12/12/2023 2:26 PM CDT [facility] Blood Peripheral blood specimen / Unknown Venipuncture / Unknown 12/12/2023 1:24 PM CDT 12/12/2023 1:30 PM CDT Adriel Schuler MD LAB BLOOD ORDERABLES Final Resul t Performing Organization Address City/[facility] Co de Phone Number [facility] Unless otherwise noted, all lab tests performed by: Division of Pathology and Laboratory Medicine [address] [place] [phone] * (ABNORMAL) Electrolyte Panel (12/12/2023 1:24 PM CDT) Only the most recent of3 resultswithin the time period is included. Sodium Level 139 136 - 145 mmol/L 12/12/2023 2:26 PM CDT [facility] Potassium Level 4.9(H) 3.4 - 4.5 mmol/L 12/12/2023 2:26 PM CDT [facility] Chloride 104 98 - 107 mmol/L 12/12/2023 2:26 PM CDT [facility] CO2 27 22 - 29 mmol/L 12/12/2023 2:26 PM CDT [facility] Anion Gap 8 4 - 14 mmol/L 12/12/2023 2:26 PM CDT [facility] Blood Peripheral blood specimen / Unknown Venipuncture / Unknown 12/12/2023 1:24 PM CDT 12/12/2023 1:30 PM CDT Adriel Schuler MD LAB BLOOD ORDERABLES Final Resul t Performing Organization Address City/[facility] Co de Phone Number [facility] Unless otherwise noted, all lab tests performed by: Division of Pathology and Laboratory Medicine [address] [place] [phone] * PETCT F18 FDG (Fluorodeoxyglucose) with contrast (12/11/2023 12:15 PM CDT) Anatomical Region Laterality Modality Whole Body Positron Emissio n Tomography (PET) 12/12/2023 2:15 PM CDT Addenda Addendum by Yoshi Quintero MD on 12/12/2023 6:49 PM CDT Patient has a history of rectal gastrointestinal stromal tumor. There is a 0.9 cm calcified density noted on image 256 of series 3 which is at the location of the previously noted just, best visualized on the prior MRI. Activity of the lesion is perhaps obscured by physiologic activity in the anal canal. Allowing for differences in technique, the lesion is similar in size to slightly smaller when compared to the prior study. Impressions 12/12/2023 2:26 PM CDT A subcentimeter subcarinal node shows low-grade metabolic activity. This may be reactive and should be closely monitored. A few mildly prominent nodes show metabolic activity similar to that of background activity. These likely represent treated disease. ACTIONABLE ITEMS/RECOMMENDATIONS*: None. *An Actionable Finding is a finding that may be unrelated to the original reason for imaging but potentially actionable, meaning further investigation may be necessary. The Actionable Findings Vigilance Unit (AFVU) assists medical providers with responding to additional radiologic findings that are unexpected and potentially actionable. Narrative 12/12/2023 2:26 PM CDT FULL RESULT: Examination: 18F-FDG-PET/CT with contrast, 12/11/2023 12:15 PM Clinical History: Chronic lymphocytic leukemia. Indication: Restaging study for subsequent treatment strategy. Comparison: CT scan from 05/25/2023. Technique: F-18 fluorodeoxyglucose 9.7 mCi was administered intravenously via right antecubital vein. To allow for distribution and uptake of radiotracer, the patient was asked to rest quietly for approximately 60-90 minutes. PET/CT imaging was performed from the vertex to thighs. CT scanning was done for attenuation correction, image registration, and diagnosis with scan parameters optimized to minimize radiation exposure to the patient. The CT portion of the examination was performed with intravenous contrast. SUV measurements are reported as maximum SUV based on body weight unless otherwise specified. Findings: Head and Neck: No intracranial mass lesions are seen. Physiological distribution of tracer is noted in the lymphoid tissue surrounding the oropharynx. 0.5 cm right supraclavicular node on image 92 shows low-grade metabolic activity similar to that of background activity. Chest: There is a subcentimeter subcarinal node with low-grade metabolic activity, maximum SUV of 3.9 on image 114. No hilar adenopathy seen. No evidence of axillary adenopathy. No infiltrative pulmonary parenchymal changes are noted. An aortic stent is noted in situ. No pleural effusion Abdomen and Pelvis: 1.5 cm left retroperitoneal node on image 197 is noted, stable since May 2023. However, this node shows metabolic activity similar to that of background activity, compatible with treated disease. No metabolically avid retroperitoneal, mesenteric or pelvic adenopathy seen. Physiologic radiotracer activity is noted in the liver, spleen. The adrenal glands, the kidneys, the pancreas are within normal limits. Musculoskeletal: There are no FDG avid bony lesions seen. No FDG avid intramuscular or subcutaneous lesions are identified. Procedure Note Yoshi Quintero MD - 12/12/2023 FULL RESULT: Examination: 18F-FDG-PET/CT with contrast, 12/11/2023 12:15 PM Clinical History: Chronic lymphocytic leukemia. Indication: Restaging study for subsequent treatment strategy. Comparison: CT scan from 05/25/2023. Technique: F-18 fluorodeoxyglucose 9.7 mCi was administered intravenously via rightantecubital vein. To allow for distribution and uptake of radiotracer, thepatient was asked to rest quietly for approximately 60-90 minutes. PET/CTimaging was performed from the vertex to thighs. CT scanning was done forattenuation correction, image registration, and diagnosis with scanparameters optimized to minimize radiation exposure to the patient. The CTportion of the examination was performed with intravenous contrast. SUVmeasurements are reported as maximum SUV based on body weight unlessotherwise specified. Findings: Head and Neck: No intracranial mass lesions are seen. Physiological distribution oftracer is noted in the lymphoid tissue surrounding the oropharynx. 0.5 cmright supraclavicular node on image 92 shows low-grade metabolic activitysimilar to that of background activity. Chest: There is a subcentimeter subcarinal node with low-grade metabolicactivity, maximum SUV of 3.9 on image 114. No hilar adenopathy seen. Noevidence of axillary adenopathy. No infiltrative pulmonary parenchymalchanges are noted. An aortic stent is noted in situ. No pleural effusion Abdomen and Pelvis: 1.5 cm left retroperitoneal node on image 197 is noted, stable sinceMay 2023. However, this node shows metabolic activity similar to thatof background activity, compatible with treated disease. No metabolicallyavid retroperitoneal, mesenteric or pelvic adenopathy seen. Physiologicradiotracer activity is noted in the liver, spleen. The adrenal glands,the kidneys, the pancreas are within normal limits. Musculoskeletal: There are no FDG avid bony lesions seen. No FDG avid intramuscular orsubcutaneous lesions are identified. IMPRESSION: A subcentimeter subcarinal node shows low-grade metabolic activity. Thismay be reactive and should be closely monitored. A few mildly prominent nodes show metabolic activity similar to that ofbackground activity. These likely represent treated disease. ACTIONABLE ITEMS/RECOMMENDATIONS*: None. *An Actionable Finding is a finding that may be unrelated to the originalreason for imaging but potentially actionable, meaning furtherinvestigation may be necessary. The Actionable Findings Vigilance Unit(AFVU) assists medical providers with responding to additional radiologicfindings that are unexpected and potentially actionable. Deloris Jimenez APRN IMG PETCT ORDERABLES Edited Result - Final * POC Creatinine (12/11/2023 10:43 AM CDT) Only the most recent of2 resultswithin the time period is included. POC Creatinine 1.0 0.6 - 1.3 mg/dL 12/11/2023 10:46 AM [facility] Comment:Medications, especia lly hydroxyurea or supplements, such as ascorbate, can interfere with test results causing a falsely and significantly higher result than expected. If a problem is suspected with a patient's result, a sample should be sent to the laboratory for confirmatory testing. POC eGFR 82 >=60 mL/min/1.7 3 sq. m 12/11/2023 10:46 AM [facility] Comment: The eGFRcr is calculated with the 2020 CKD-EPI creatinine equation using creatinine, patient's age, and sex for adults 18 years of age and older. Other factors, especially muscle mass, may affect accuracy and need to be considered. According to the Kidney Disease: Improving Global Outcomes (KDIGO) CKD Work Group 2012 Clinical Practice Guideline, chronic kidney disease (CKD) is defined as the abnormalities of kidney structure or function, present for more than 3 months, with implications for health. CKD should be classified by cause, GFR category, and albuminuria category. KDIGO guidelines provide the following GFR categories. Stage / Description / GFR mL/min/1.73 m2: G1* / Normal or high / >= 90 G2* / Mildly decreased / 60-89 G3a / Mildly to moderately decreased / 45-59 G3b / Moderately to severely decreased / 30-44 G4 / Severely decreased / 15-29 G5 / Kidney failure / <15 *In the absence of evidence of kidney damage, neither G1 nor G2 fulfill criteria for CKD. Blood 12/11/2023 10:4 3 AM CDT 12/11/2023 10:46 AM CDT Narrative [place] - 12/11/2023 10:46 AM CDT Method description: The i-STAT is an analyzer used for in vitro quantification of various analytes in whole blood. The device uses a single disposable cartridge which contains microfabricated sensors, a calibration solution, fluidics system, and a waste chamber. Each test cartridge contains chemically sensitive biosensors on a silicon chip that are configured to perform specific tests. The microfabricated sensors measure analyte concentration by an electrochemical assay. Deloris Jimenez APRN POCT ORDERABLES - DE VICE Final Result [facility] [address] [facility], [facility] [address] [place] [address] * CT Abdomen Pelvis with Contrast (05/25/2023 10:28 AM ALIGNING INSPECTOR) Anatomical Region Laterality Modality Abdomen, Pelvis Computed Tomogra phy 05/25/2023 12:3 2 PM ALIGNING INSPECTOR Impressions 05/25/2023 12:50 PM ALIGNING INSPECTOR Stable treated lymphoma. Stable small rectal gastrointestinal stromal tumor. No metastases. . ACTIONABLE ITEMS/RECOMMENDATIONS: None. Narrative 05/25/2023 12:50 PM ALIGNING INSPECTOR FULL RESULT: Examination: CT ABDOMEN PELVIS W CONTRAST on 05/25/2023 10:28 AM. 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 Technique: CT ABDOMEN PELVIS W CONTRAST. FINDINGS: ABDOMEN AND PELVIS FINDINGS: Hepatobiliary/ Spleen: Liver and spleen are normal. Gallbladder is normal. There is no adenopathy in the upper abdomen. Gastrointestinal Tract/: Peritoneum: Gastrointestinal tract is within normal range. There is diverticular disease in the sigmoid colon. There is no adenopathy in the mesentery. There is no peritoneal implants Pancreas/Adrenal Glands /Kidneys/ Retroperitoneum: The pancreas, adrenals, kidneys are within normal range there are small cyst in the kidneys. Retroperitoneal adenopathy in the left paraortic region, treated lymphoma is not changed significantly. Bladder/Pelvic Organs: The small gastric segment tumor seen between the right lobe the prostate and the rectum is not changed significantly. Maximal AP diameter is approximately 1.1 cm. There is a tiny calcification and has developed centrally. This is seen image 160 series 301. Prostate is slightly enlarged. Lines and Tubes: None Musculoskeletal : No suspicious skeletal lesions. Degenerative changes. Procedure Note Irma Ackerman MD - 05/25/2023 FULL RESULT: Examination: CT ABDOMEN PELVIS W CONTRAST on 05/25/2023 10:28 AM. 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 Technique: CT ABDOMEN PELVIS W CONTRAST. FINDINGS: ABDOMEN AND PELVIS FINDINGS: Hepatobiliary/ Spleen: Liver and spleen are normal. Gallbladder is normal.There is no adenopathy in the upper abdomen. Gastrointestinal Tract/: Peritoneum: Gastrointestinal tract is withinnormal range. There is diverticular disease in the sigmoid colon. There isno adenopathy in the mesentery. There is no peritoneal implants Pancreas/Adrenal Glands /Kidneys/ Retroperitoneum: The pancreas, adrenals,kidneys are within normal range there are small cyst in the kidneys. Retroperitoneal adenopathy in the left paraortic region, treated lymphomais not changed significantly. Bladder/Pelvic Organs: The small gastric segment tumor seen between theright lobe the prostate and the rectum is not changed significantly.Maximal AP diameter is approximately 1.1 cm. There is a tiny calcificationand has developed centrally. This is seen image 160 series 301. Prostateis slightly enlarged. Lines and Tubes: None Musculoskeletal : No suspicious skeletal lesions. Degenerative changes. IMPRESSION: Stable treated lymphoma. Stable small rectal gastrointestinal stromal tumor. No metastases. . ACTIONABLE ITEMS/RECOMMENDATIONS: None. Venkat SOLARES IMG CT ORDERABLES Final Re sult * (ABNORMAL) Comprehensive Metabolic Panel (05/25/2023 9:32 AM ALIGNING INSPECTOR) Bilirubin Total 0.9 <=1.2 mg/dL 05/25/2023 10:40 AM [facility] Comment: Indocyanine Green (ICG) may cause falsely elevated bilirubin results. Total and direct bilirubin must not be measured from samples containing indocyanine green. False elevation of total bilirubin can be seen in patients with IgG concentrations above 28 g/L. This result was previously suppressed from the chart. Bilirubin Direct 0.2 <=0.3 mg/dL 05/25/2023 10:40 AM [facility] Comment: Indocyanine Green (ICG) may cause falsely elevated bilirubin results. Total and direct bilirubin must not be measured from samples containing indocyanine green. This result was previously suppressed from the chart. Bilirubin Indirect 0.7 0.0 - 0.9 mg/dL 05/25/2023 10:40 AM [facility] Comment:This result was prev iously suppressed from the chart. eGFR 81 >=60 mL/min/1. 73 sq. m 05/25/2023 10:40 AM [facility] Comment: The eGFRcr is calculated with the 2020 CKD-EPI creatinine equation using creatinine, patient's age, and sex for adults 18 years of age and older. Other factors, especially muscle mass, may affect accuracy and need to be considered. According to the Kidney Disease: Improving Global Outcomes (KDIGO) CKD Work Group 2012 Clinical Practice Guideline, chronic kidney disease (CKD) is defined as the abnormalities of kidney structure or function, present for more than 3 months, with implications for health. CKD should be classified by cause, GFR category, and albuminuria category. KDIGO guidelines provide the following GFR categories. Stage / Description / GFR mL/min/1.73 m2: G1* / Normal or high / >= 90 G2* / Mildly decreased / 60-89 G3a / Mildly to moderately decreased / 45-59 G3b / Moderately to severely decreased / 30-44 G4 / Severely decreased / 15-29 G5 / Kidney failure / <15 *In the absence of evidence of kidney damage, neither G1 nor G2 fulfill criteria for CKD. Tot Protein 7.0 6.4 - 8.3 gm/dL 05/25/2023 10:40 AM [facility] Comment:This result was prev iously suppressed from the chart. Calcium Level Total 9.9 8.2 - 10.2 mg/dL 05/25/2023 10:40 AM [facility] Comment:This result was prev iously suppressed from the chart. Alkaline Phosphatase 125 40 - 129 U/L 05/25/2023 10:40 AM [facility] Comment:This result was prev iously suppressed from the chart. Albumin Level 4.7 3.5 - 5.2 gm/dL 05/25/2023 10:40 AM [facility] Comment:This result was prev iously suppressed from the chart. AST 45(H) <=40 U/L 05/25/2023 10:40 AM [facility] Comment:This result was prev iously suppressed from the chart. ALT 55(H) <=41 U/L 05/25/2023 10:40 AM [facility] Comment:This result was prev iously suppressed from the chart. Sodium Level 137 136 - 145 mmol/L 05/25/2023 10:40 AM [facility] Comment:This result was prev iously suppressed from the chart. Potassium Level 4.3 3.4 - 4.5 mmol/L 05/25/2023 10:40 AM [facility] Comment:This result was prev iously suppressed from the chart. Chloride 103 98 - 107 mmol/L 05/25/2023 10:40 AM [facility] Comment:This result was prev iously suppressed from the chart. CO2 27 22 - 29 mmol/L 05/25/2023 10:40 AM [facility] Comment:This result was prev iously suppressed from the chart. Anion Gap 7 4 - 14 mmol/L 05/25/2023 10:40 AM [facility] Comment:This result was prev iously suppressed from the chart. Creatinine 1.02 0.67 - 1.17 mg/dL 05/25/2023 10:40 AM [facility] Comment:This result was prev iously suppressed from the chart. BUN 14 6 - 23 mg/dL 05/25/2023 10:40 AM [facility] Comment:This result was prev iously suppressed from the chart. Glucose Level 89 70 - 99 mg/dL 05/25/2023 10:40 AM ALIGNING INSPECTOR [facility] Comment: Effective 12/15/15, the glucose reference intervals have been updated based on [place] [employer] guidelines (Standards of Medical Care in Diabetes 2016. Diabetes Care 2016; 39: S13-S22). Fasting blood glucose: Normal: 70-99 mg/dL Impaired fasting glucose (increased risk for diabetes or pre-diabetes): 100-125 mg/dL Diabetes mellitus: >/=126 mg/dL Random blood glucose: Normal: 70-199 mg/dL Note: Random glucose >100 mg/dL is associated with increased risk for diabetes. This result was previously suppressed from the chart. Blood Peripheral blood specimen / Unknown Peripheral Catheter / Unknown 05/25/2023 9:32 AM ALIGNING INSPECTOR 05/25/2023 9:52 AM ALIGNING INSPECTOR Venkat SOLARES LAB BLOOD ORDERABLES Final Result [facility] Unless otherwise noted, all lab tests performed by: Division of Pathology and Laboratory Medicine [address] [place] [phone] after 05/10/2023 Insurance [employer] [place] MEDICARE ADVANTAGE [place] [id number] [facility] MEDICARE ADVANTAGE Advance Directives * Full Code (Latest Code Status on File) Date Activated Date Inactivated Comments 02/27/2023 4:43 PM 03/01/2023 2:49 PM * Full Code Date Activated Date Inactivated Comments 11/17/2020 8:41 PM 11/20/2020 5:17 PM Care Teams Protection Analyst Relationship Specialty Start Date End Date Adriel Schuler MD [address] [place] [phone] [email or web address] PCP - General Leukemia 05/31/22 Eva Momin MD [address] [place] [phone] [email or web address] Consulting Physician Sarcoma 12/08/21 Woody Billy MD [address] [place] [phone] [email or web address] Consulting Physician Infectious Diseases 12/03/20 Erlin Flores MD PhD [address] [place] [phone] [email or web address] Consulting Physician Surgical Oncology 09/30/21
--- NOTE | 2024-05-09 16:41 | RAD REPORT ---
EXAMINATION: US LEFT LOWER EXTREMITY VENOUS DOPPLER CLINICAL INDICATION: [facility] MAIN left leg Pain;Swelling Bed Name: 16 Y TECHNIQUE: Complete bilateral duplex sonography of the LEFT lower extremity veins was performed. The examination included compression for vein patency, color Doppler imaging and flow augmentation in response to distal compression of the distal external iliac, common femoral, femoral, popliteal, tibi al, and great and small saphenous veins. COMPARISON: No prior exam. FINDINGS: Duplex sonography testing of the veins of the LEFT lower extremity was performed. Color flow imaging shows all veins to be compressible with [id number] color filling. Pulsatile and phasic flow is present within all lower extremity deep and superficial veins examined. IMPRESSION: No evidence of deep venous thrombosis.
--- NOTE | 2024-05-09 16:47 | RAD REPORT ---
EXAM: XR Knee Left 3 View HISTORY: [facility] MAIN PAIN Bed Name: 16 COMPARISON: None TECHNIQUE: 3 views of the left knee were obtained. FINDINGS: No knee effusion is seen. There is no evidence of acute fracture or dislocation. Total kne e arthroplasty hardware in place. Subtle lucency along the prosthesis/bone junction of the tibial component most pronounced anteriorly, and at the periphery of the lateral more than medial tibial isidro teau components. No soft tissue swelling or other soft tissue abnormality is present. IMPRESSION: No acute fracture. Total knee arthroplasty hardware in place with linear lucencies at the prosthesis/bone interface, may relate to hardware loosening in the appropriate clinical setting.
--- NOTE | 2024-05-09 17:05 | ER ---
Nurse's Notes [facility] Name: Santosh Ferrera Age: 68 yrs Sex: Male : 1955 Arrival Date: 05/09/2024 Time: 15:06 Bed 16 Private MD: Diagnosis: Strain of other muscle(s) and tendon(s) of posterior muscle group at lower leg level-left Presentation: 05/09 15:29 Chief complaint: Patient states: pain swelling and bruising to left leg. pt states that cm10 5 days ago he hyper extended his knee. pt has noted bruising to his leg. Coronavirus screen: Client denies travel out of the [place] in the last 14 days. Ebola Screen: Patient denies travel to an Ebola-affected area in the 21 days before illness onset. No symptoms or risks identified at this time. Initial Sepsis Screen: Does the patient meet any 2 criteria? No. Patient's initial sepsis screen is negative. Does the patient have a suspected source of infection? No. Patient's initial sepsis screen is negative. Risk Assessment: Do you want to hurt yourself or someone else? Patient reports no desire to harm self or others. Onset of symptoms was May 09, 2024. 15:29 Method Of Arrival: Ambulatory cm10 15:29 Acuity: ZOFIA 3 cm10 Historical: - Allergies: 15:31 No Known Allergies; cm10 - PMHx: 15:31 High Cholesterol; Hypertension; cm10 - PSHx: 15:31 Valve replacement; knee replacement; cm10 - Immunization history:: Adult Immunizations up to date. - Infectious Disease History:: Denies. - Social history:: Smoking status: Patient denies any tobacco usage or history of. Screenin:30 [facility] ED Fall Risk Assessment (Adult) History of falling in the last 3 months, rs5 including since admission No falls in past 3 months (0 pts) Confusion or Disorientation No (0 pts) Intoxicated or Sedated No (0 pts) Impaired Gait Yes (1 pt) Mobility Assist Device Used Yes (1 pt) Altered Elimination No (0 pt) Score/Fall Risk Level 0 - 2 = Low Risk Oriented to surroundings, Maintained a safe environment. Abuse screen: Denies threats or abuse. Nutritional screening: No deficits noted. Tuberculosis screening: No symptoms or risk factors identified. Assessment: 15:25 General: Appears in no apparent distress. uncomfortable, Behavior is calm, cooperative. rs5 Pain: Denies pain. Complains of pain in left leg Pain currently is 3 out of 10 on a pain scale. Quality of pain is described as aching, Is continuous. Neuro: Level of Consciousness is awake, alert, obeys commands, Oriented to person, place, time, situation. Cardiovascular: Patient's skin is warm and dry. Respiratory: Airway is patent Respiratory effort is even, unlabored, Respiratory pattern is regular, symmetrical. GI: Abdomen is round non-distended, Abd is soft and non tender X 4 quads. : No signs and/or symptoms were reported regarding the genitourinary system. EENT: No signs and/or symptoms were reported regarding the EENT system. Derm: Skin is intact, Skin is pink, warm \T\ dry. Musculoskeletal: Range of motion: limited in left leg Swelling swelling noted to left leg. 16:43 Reassessment: Patient and/or family updated on plan of care and expected duration. Pain rs5 level reassessed. Patient is alert, oriented x 3, equal unlabored respirations, skin warm/dry/pink. 17:20 Reassessment: Patient and/or family updated on plan of care and expected duration. Pain rs5 level reassessed. Patient is alert, oriented x 3, equal unlabored respirations, skin warm/dry/pink. Vital Signs: 15:29 BP 139 / 76; Pulse 73; Resp 16; Temp 97.5; Pulse Ox 99% on R/A; Weight 74.84 kg; Height cm10 5 ft. 7 in. ; Pain 8/10; 16:43 BP 135 / 71; Pulse 77; Resp 17; Pulse Ox 98% on R/A; rs5 17:22 BP 130 / 28; Pulse 74; Resp 17; Pulse Ox 98% on R/A; rs5 15:29 Body Mass Index 25.84 (74.84 kg, 170.18 cm) cm10 15:29 Pain Scale: Adult cm10 ED Course: 15:10 Patient arrived in ED. sj2 15:11 Cuba Urena PA is PHCP. cp 15:11 Rosita Spears MD is Attending Physician. cp 15:27 Tj Jacques, CADENCE is Primary Nurse. rs5 15:30 Patient has correct armband on for positive identification. Placed in gown. Bed in low rs5 position. Call light in reach. Side rails up X2. 15:30 No provider procedures requiring assistance completed. rs5 15:31 Triage completed. cm10 15:32 Arm band placed on right wrist. Patient placed in an exam room, on a stretcher. cm10 16:19 XRAY Knee LEFT 3 view In Process Unspecified. EDMS 16:34 US Extremity Venous Unilateral Ltd In Process Unspecified. EDMS 17:03 Forrest Tellez MD is Referral Physician. cp 17:22 Provided Education on: discharge instructions . rs5 17:25 Patient did not have IV access during this emergency room visit. rs5 Administered Medications: No medications were administered Medication: 16:43 VIS not applicable for this client. rs5 Outcome: 17:04 Discharge ordered by . cp 17:25 Discharged to home via wheelchair, with family, rs5 17:25 Condition: stable rs5 17:25 Discharge instructions given to patient, family, Instructed on discharge instructions, follow up and referral plans. medication usage, Demonstrated understanding of instructions, follow-up care, medications, Prescriptions given X 1, 17:30 Patient left the ED. rs5 Signatures: Dispatcher [employer] EDKS Cuba Urena PA PA cp Sotelo, Ricky RN RN rs5 Florinda Mckeon RN RN cm10 Kristel Fritz sj2
--- NOTE | 2024-05-09 17:05 | EDPHYS ---
Physician Documentation [facility] Name: Santosh Ferrera Age: 68 yrs Sex: Male : 1955 Arrival Date: 05/09/2024 Time: 15:06 Bed 16 Private MD: ED Physician Rosita Spears HPI: 05/09 15:25 This 68 yrs old Male presents to ER via Ambulatory with complaints of Leg Injury. cp 15:25 The patient presents with pain, that is acute, swelling, tenderness. The complaints cp affect the posterior aspect of left knee and left lower leg. 15:25 Onset: The symptoms/episode began/occurred 5 day(s) ago. cp 15:25 Context: the patient can fully bear weight, the patient is able to ambulate, with mild cp difficulty, resulted from incident in which he stepped on shovel and left knee hyperextended. Associated signs and symptoms: Pertinent negatives fever, shortness of breath. Historical: - Allergies: 15:31 No Known Allergies; cm10 - PMHx: 15:31 High Cholesterol; Hypertension; cm10 - PSHx: 15:31 Valve replacement; knee replacement; cm10 - Immunization history:: Adult Immunizations up to date. - Infectious Disease History:: Denies. - Social history:: Smoking status: Patient denies any tobacco usage or history of. ROS: 15:30 Constitutional: Negative for body aches, chills, fever, poor PO intake, cp 15:30 Eyes: Negative for injury, pain, redness, and discharge, cp 15:30 Cardiovascular: Negative for chest pain, edema, palpitations, 15:30 Respiratory: Negative for cough, shortness of breath, wheezing, 15:30 Abdomen/GI: Negative for abdominal pain, nausea, vomiting, and diarrhea, 15:30 MS/extremity: Positive for ecchymosis, pain, swelling, tenderness, of the left knee and left lower leg, Negative for decreased range of motion, 15:30 All other systems are negative, Exam: 15:33 Constitutional: The patient appears in no acute distress, alert, awake, non-toxic, well cp developed, well nourished, uncomfortable, 15:33 Head/Face: Normocephalic, atraumatic. cp 15:33 Chest/axilla: Inspection: normal, 15:33 Cardiovascular: Rate: normal, 15:33 Respiratory: the patient does not display signs of respiratory distress, Respirations: normal, no use of accessory muscles, no retractions, labored breathing, is not present, Breath sounds: are clear throughout, no decreased breath sounds, 15:33 Back: pain, is absent, ROM is normal, 15:33 Musculoskeletal/extremity: Extremities: noted in the left posterior knee and left lower leg: ecchymosis, swelling, tenderness, ROM: full active range of motion, in the left knee, DVT Exam: pain, swelling, tenderness, positive Homans' sign noted on exam, bluish discoloration, that is mild, of the left leg, Vital Signs: 15:29 BP 139 / 76; Pulse 73; Resp 16; Temp 97.5; Pulse Ox 99% on R/A; Weight 74.84 kg; Height cm10 5 ft. 7 in. ; Pain 8/10; 16:43 BP 135 / 71; Pulse 77; Resp 17; Pulse Ox 98% on R/A; rs5 17:22 BP 130 / 28; Pulse 74; Resp 17; Pulse Ox 98% on R/A; rs5 15:29 Body Mass Index 25.84 (74.84 kg, 170.18 cm) cm10 15:29 Pain Scale: Adult cm10 MDM: 15:22 Medical Screening Exam initiated cp 16:00 Differential diagnosis: muscle strain, fracture, DVT, hematoma, cellulitis. cp 17:03 Data reviewed: vital signs, nurses notes, radiologic studies, plain films, ultrasound, cp I have discussed the patient's presentation/case with the attending Emergency Department Physician; and as a result, I will discharge patient. 17:03 Counseling: I had a detailed discussion with the patient and/or guardian regarding the cp historical points, exam findings, and any diagnostic results supporting the discharge/admit diagnosis, radiology results, the need for outpatient follow up, a orthopedic surgeon. ED course: Discussed radiologist report of knee xray indicating concern for fracture at tibia prosthesis site. Patient placed in knee immobilizer and ortho f/u recommended. 05/09 15:31 Order name: US Extremity Venous Unilateral Ltd; Complete Time: 17:02 cp 05/09 15:37 Order name: XRAY Knee LEFT 3 view; Complete Time: 17:02 cp 05/09 17:02 Order name: Knee Immobilizer; Complete Time: 17:07 cp Administered Medications: No medications were administered Disposition Summary: 05/09/24 17:04 Discharge Ordered Notes: Location: Home cp Problem: new cp Symptoms: have improved cp Condition: Stable cp Diagnosis - Strain of other muscle(s) and tendon(s) of posterior muscle group at lower leg cp level - left Followup: cp - With: Forrest Tellez MD - When: 5 - 6 days - Reason: Recheck today's complaints Discharge Instructions: - Discharge Summary Sheet cp - Muscle Strain cp Forms: - Medication Reconciliation Form cp - Antibiotic Education cp - Prescription Opioid Use cp - Patient Portal Instructions cp - Leadership Thank You Letter cp Prescriptions: - Ibuprofen 800 mg Oral Tablet - take 1 tablet ORAL route every 8 hours As needed take with food; 30 tablet; cp Refills: 0, Product Selection Permitted Signatures: Dispatcher [employer] EDMS Cuba Urena PA PA cp Martinez, Clarissa RN RN cm10 Corrections: (The following items were deleted from the chart) 15:31 15:31 Extremity Venous Uni Ltd+US.RAD.BRZ ordered. EDMS EDMS 15:38 15:38 Knee Left 3 View+RAD.RAD.BRZ ordered. EDMS EDMS
[2024-05-09 17:34] VITALS: TEMP 97.5
[2024-05-09 17:35] VITALS: BP 135/71; O2SAT 98
== END 2024-05-09 17:30 | disposition home or self-care (01) ==
LOC: ER 15:06
DX: S86.112A Strain of other muscle(s) and tendon(s) of posterior muscle group at lower leg level, left leg, initial encounter (principal); E78.00 Pure hypercholesterolemia, unspecified; I10 Essential (primary) hypertension; W01.0XXA Fall on same level from slipping, tripping and stumbling without subsequent striking against object, initial encounter; Y93.9 Activity, unspecified; Y92.9 Unspecified place or not applicable; Z96.659 Presence of unspecified artificial knee joint
CPT/HCPCS: 93971; 99283